=== PATIENT | female | born 1975 | race Caucasian/White ===

== ENCOUNTER 2017-03-10 15:38 | Observation (INO) | payer MEDICARE, MEDICAID ==
[2017-03-10] MEDS ORDERED: Ketorolac Tromethamine 30 MG/ML VIAL ONE (16:17)
--- NOTE | 2017-03-10 16:30 | RAD ---
RIGHT ANKLE THREE VIEWS 03/10/17 INDICATION: Injury. FINDINGS: There is an obliquely oriented distal fibular fracture. There is slight wearing of the medial ankle mortise. Soft tissue swelling is present. There is a fracture fragment at the medial aspect of the ankle just lateral to the talus. Exact etiol ogic site for this avulsed fracture fragment is not definitive. IMPRESSION: Distal fibular fracture. Fracture fragmentation at the medial aspect of the ankle. Disruption of ankle mortise. Consider CT evaluation for further anatomic delineation. POS: [facility]
[2017-03-10 16:54] LABS: #Basophils 0.1 thou/uL (0.0-0.2); #Eosinphils 0.1 thou/uL (0.0-0.7); #Lymphocytes 2.8 thou/uL (1.20-3.40); #Monocytes 0.5 thou/uL (0.11-0.59); #Neutrophils 6.6 thou/uL (1.40-6.50); %Basophils 0.5 % (0.0-1.0); %Eosinophils 1.1 % (0.0-10.0); Mean Platelet Volume 6.7 fL (7.4-10.4)
[2017-03-10 17:16] LABS: Anisocytosis SLIGHT = 6-15 cells (100X) (0-5/hpf); Basophilic Stippling SLIGHT = 1-2 cells (100X) (None Seen); Hypochromia SLIGHT = 6-15 cells (100X) (0-5/hpf); Microcytosis MODERATE=15-30 cells (100X) (0-5/hpf); Ovalocytes SLIGHT = 2-5 cells (100X) (0-1/hpf); Polychromasia SLIGHT = 2-3 cells (100X) (0-2/hpf)
[2017-03-10 17:19] LABS: ALT (SGPT) 13 U/L (8-55); AST (SGOT) 15 U/L (5-34); Alkaline Phosphatase 79 U/L (40-150); Anion Gap 11 mmol/L (10-20); BUN (Urea Nitrogen) 9 mg/dL (7.0-18.7); Bilirubin, Total 0.2 mg/dL (0.2-1.2); CK (CPK) 62 U/L (29-168); Calc. Creatinine Clearance 0 mL/min (70-130); Calcium 8.3 mg/dL (7.8-10.44); Carbon Dioxide 25 mmol/L (22-29); Chloride 101 mmol/L (98-107); Estimated GFR-MDRD 75; Globulin 2.8 g/dL (2.4-3.5); Lipase 18 U/L (8-78); Protein, Total 6.6 g/dL (6.0-8.3)
[2017-03-10 17:23] LABS: Troponin I Less than 0.010 ng/mL (< 0.028)
[2017-03-10] MEDS ORDERED: Morphine 4 MG/ML VIAL ONE (18:41)
[2017-03-10 19:19] LABS: Bilirubin Negative (Negative); Blood, Urine Negative (Negative); Glucose, Urine (Dipstick) Negative (Negative); Ketone, Urine Negative (Negative); Nitrite Negative (Negative); Protein, Urine (Dipstick) Negative (Neg-Trace); Urobilinogen 0.2 mg/dL (0.2-1.0)
[2017-03-10] MEDS ORDERED: Ondansetron HCl/PF 4 MG/2 ML Vial IVP PRN (20:58)
[2017-03-10] MEDS ORDERED: Ondansetron ODT 4 MG TAB SL PRN (20:58)
[2017-03-10 20:59] LABS: Troponin I Less than 0.010 ng/mL (< 0.028)
[2017-03-10] MEDS ORDERED: Acetaminophen 325 MG TAB PO PRN (21:13)
[2017-03-10 21:17] VITALS: BMI 40.7
[2017-03-10] MEDS ORDERED: Acetaminophen/Codeine 30-300mg Tablet PO PRN (21:21)
[2017-03-10] MEDS: Sodium Chloride 0.9% 1,000 ML IV SCH (22:14)
[2017-03-10 23:14] LABS: Iron 16 ug/dL (50-170)
[2017-03-10 23:19] LABS: Troponin I Less than 0.010 ng/mL (< 0.028)
[2017-03-10] MEDS ORDERED: Ketorolac Tromethamine 30 MG/ML VIAL IVP SCH (23:45)
[2017-03-11 00:19] LABS: Bilirubin Negative (Negative); Blood, Urine Large (Negative); Glucose, Urine (Dipstick) Negative (Negative); Ketone, Urine Negative (Negative); Nitrite Positive (Negative); Protein, Urine (Dipstick) Negative (Neg-Trace); Urobilinogen 0.2 mg/dL (0.2-1.0)
[2017-03-11 00:30] LABS: RBC/HPF 21-50 HPF (0-3)
[2017-03-11 00:31] LABS: Bacteria/HPF 3+ HPF (None Seen); Hyaline Casts/LPF 0-3 HYALINE CAST LPF (0-3 Hyaline); Squamous Epithelial 0-3 HPF (0-3)
[2017-03-11 00:35] LABS: Amphetamine Not Detected (NotDetected); Methadone Not Detected (NotDetected); Methamphetamine Not Detected (NotDetected)
[2017-03-11 05:02] LABS: #Eosinphils 0.2 thou/uL (0.0-0.7); #Lymphocytes 3.2 thou/uL (1.20-3.40); #Monocytes 0.5 thou/uL (0.11-0.59); %Basophils 0.4 % (0.0-1.0); %Eosinophils 1.9 % (0.0-10.0); %Lymphocytes 35.7 % (21.0-51.0); %Monocytes 5.9 % (0.0-10.0); Hematocrit 26.2 % (36.0-47.0); Mean Platelet Volume 6.8 fL (7.4-10.4); Red Blood Cell (RBC) Count 3.58 mill/uL (4.20-5.40); White Blood Cell (WBC) Count 8.8 thou/uL (4.8-10.8)
[2017-03-11] MEDS: Sodium Chloride 0.9% 1,000 ML IV SCH ×2 (05:04→12:23)
[2017-03-11] MEDS: Acetaminophen/Codeine 30-300mg Tablet PO PRN ×5 (05:08→22:07)
[2017-03-11 05:13] LABS: Anion Gap 10 mmol/L (10-20); BUN (Urea Nitrogen) 12 mg/dL (7.0-18.7); Calc. Creatinine Clearance 161 mL/min (70-130); Calcium 8.2 mg/dL (7.8-10.44); Carbon Dioxide 26 mmol/L (22-29); Chloride 106 mmol/L (98-107); Cholesterol 229 mg/dl (< 200 Desired); Estimated GFR-MDRD 79; LDL Cholesterol, Calculated 152 mg/dL
--- NOTE | 2017-03-11 07:38 | HP-2 ---
RESIDENT PHYSICIAN: Joselo Mccall M.D. ATTENDING PHYSICIAN: Gabriele Silva M.D. PRIMARY CARE PHYSICIAN: Carissa Chahal D.O. CODE STATUS: FULL. CHIEF COMPLAINT: "I passed out." HISTORY OF PRESENT ILLNESS: This is a 41-year-old female who presents with multiple daily episodes of syncope for the last month and a half. Today, the patient passed out in the lobby of local business, which was witnessed by multiple people. The fall caused her to fracture her right ankle. The patient has not seen her PCP for evaluation of these episodes because she is currently out of work. She describes the episodes as "feeling like oxygen is being cut off from her breathing." After this, her arms and legs begin shaking, eventually give out, and then she "blacks out." The patient thinks that she is out for only a few seconds and always knows exactly what happened afterwards. No memory loss or postictal phase after these episodes. No associated chest pain, palpitations, shortness of breath, etc. Has never had anyone tell her that she has seizure-like activity. The patient does state that she sometimes loses bowel and bladder continence; however. The patient denies any obvious triggers including anxiety/emotional stress, prolonged standing, positional changes, other situational factors. In the ER, the patient received pain medication and had her right ankle splinted. Orthopedics was consulted and stated that she just needed an outpatient evaluation for her right ankle fracture. PAST MEDICAL HISTORY: 1. Bipolar 1, depressed. 2. Panic attacks. 3. Generalized anxiety disorder. 4. Chronic insomnia. Of note, the patient has had previous admissions to psychiatric facilities for suicidal ideation. She denies any history of heart disease or arrhythmias. PAST SURGICAL HISTORY: 1. Tubal ligation. 2. Cholecystectomy. ALLERGIES: BACTRIM causes hives. MEDICATIONS: 1. Prozac 60 mg q.a.m. 2. Klonopin 0.5 mg b.i.d. 3. Trazodone 50 mg 1-2 tabs at bedtime p.r.n. 4. Doxepin 150 mg at bedtime. 5. Gabapentin 300 mg in the morning and at noon and then 2400 mg at night. 6. Seroquel 400 mg at night. FAMILY HISTORY: Significant for coronary heart disease in multiple family members, her mom at [address] and had her first heart attack at 31. SOCIAL HISTORY: The patient denies tobacco use, drugs or alcohol. She is currently unemployed and searching for work. She is single with 3 children. REVIEW OF SYSTEMS: Ten point review of systems including general, eyes, ENT, respiratory, CV, GI, , skin, musculoskeletal, and neuro all negative except for those pertinent positives listed above in HPI as well as endorsing some relative hypothermia(she feels cooler than other people at normal temperatures) and right leg pain after her fall. PHYSICAL EXAMINATION: VITAL SIGNS: Blood pressure 124/78, pulse 95, respirations 18, temperature 98.4 , pulse ox 94% on room air, currently is 107.95 kilograms. GENERAL: Patient is alert and oriented x4, no acute distress. She is obese, appropriately interactive. HEENT: Eyes: PERRLA, EOMI. Conjunctivae within normal limits. 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 ENT: TMs pearly sorensen without bulging or erythema. Oropharynx within normal limits. NECK: Supple, no lymphadenopathy, no thyromegaly, no bruits. CARDIOVASCULAR: Regular rate and rhythm. She had a subtle diastolic murmur, no gallops. Radial pulses 2+, pedal pulses 2+. RESPIRATORY: Normal effort, no retractions, clear to auscultation bilaterally. ABDOMEN: Soft, nontender to palpation. Positive bowel sounds x4, no masses or distention. EXTREMITIES: No clubbing, no cyanosis, no edema. MUSCULOSKELETAL: Tone within normal limits. Muscle strength 5/5. Full range of motion. She had her right ankle in a splint. NEUROLOGIC: No focal deficits. Sensation within normal limits. Deep tendon reflexes 2/4. Cranial nerves II through XII intact. GCS 15. She had an intention tremor when performing cerebellar testing, but no ataxia. SKIN: Warm, dry. No cyanosis or other lesions. PSYCHIATRIC: Appropriate mood and affect. LABORATORY DATA AND X-RAY FINDINGS: CBC: White blood cell count 10, platelets 413, and hemoglobin 8.9, which is down from her baseline of around 11, hematocrit 29, MCV was 72.5. CMP: Sodium 133, potassium 4.2, chloride 101, bicarbonate 25, BUN 9 and creatinine 0.83, glucose 91, calcium was 8.3. Total protein 6.6, albumin 3.8, bilirubin 0.2, AST 15, ALT 13, alkaline phosphatase 79. They did check a D-dimer, which is 0.4. CK 62, CK-MB 0.7, troponin less than 0.01, and lipase 18. UA was not done. UDS pending. EKG showed normal sinus rhythm. Chest x-ray was not performed. IMAGING: Ankle x-ray showed a distal fibular fracture with fragmentation of the medial aspect of the ankle and disruption of the ankle mortise. ASSESSMENT AND PLAN: A 41-year-old female with: 1. Syncopal episode. Differential diagnosis includes vasovagal/reflex syncope versus orthostatic versus cardiac arrhythmic etiology versus structural heart disease, also consider possible seizure activity. We will check a TSH, beta hCG , UDS, UA, echo and orthostatics. We will consider EEG if workup is otherwise negative. We will also discontinue doxepin, as this may be contributing to orthostatic picture. We will place in observation on the medical unit. 2. Microcytic anemia, hemoglobin down from baseline. We will check iron studies, FOBT. Anemia could be contributing to syncopal episodes. May need further work up. The patient does endorse significant menorrhagia for many years. 3. Acute kidney injury versus chronic kidney injury. IV fluids overnight. 4. Bipolar 1. Continue home medications, hold doxepin. 5. Anxiety disorder. Continue Klonopin for now, UDS. 6. Chronic insomnia. Trazodone as needed. 7. Right fibular fracture. Orthopedic consultation as an outpatient. DISPOSITION AND LENGTH OF HOSPITAL STAY: Will likely be discharged to home and expect hospital stay less than 2 midnights. Symptomatic medications will be provided. History and physical exam as well as management discussed with Dr. Menendez. GUCCI
[2017-03-11] MEDS: Enoxaparin Sodium 40 MG/0.4 ML SYRINGE SC SCH (08:57)
[2017-03-11] MEDS: FLUoxetine HCl 20 MG CAP PO SCH (08:57)
[2017-03-11] MEDS: clonazePAM 0.5 MG TAB PO SCH ×2 (08:57→20:50)
[2017-03-11] MEDS: Gabapentin 300 MG CAP PO SCH ×2 (08:57→19:04)
[2017-03-11] MEDS: Ibuprofen 600 MG TAB PO PRN (08:58)
[2017-03-11] MEDS ORDERED: FLU VACC QS2017-18 36 mo. & older 0.5 ML SYRINGE IM ONE (09:00)
[2017-03-11] MEDS ORDERED: ASENAPINE MALEATE SL SCH (09:00)
--- NOTE | 2017-03-11 09:29 | PDOC.FM ---
- Subjective Subjective: c/o syncopal spells daily for 1.5 months described as with standing or while walking; not with defacating or voiding, although does have bowel and bladder incontinence at time with the episodes; describes prodromal sx beforehand of dizziness and tunnel vision; endorses heavy periods - Objective MAR Reviewed: Yes Vital Signs & Weight: Vital Signs (12 hours) Temp Pulse Resp BP BP BP Pulse Ox 03/11/17 07:44 97.6 F 76 16 03/11/17 04:07 97.6 F 76 16 98/52 L 96 03/10/17 23:47 99 113/61 03/10/17 23:45 98.3 F 88 16 111/56 L 97 I&O: 03/10/17 03/11/17 03/12/17 06:59 06:59 06:59 Intake Total 1471 300 Output Total 900 600 Balance 571 -300 Result Diagrams: 03/11/17 04:10 03/11/17 04:10 <Camille Owen - Last Filed: 03/11/17 14:35> - Objective Vital Signs & Weight: Vital Signs (12 hours) Temp Pulse Resp BP BP BP BP 03/11/17 12:03 97.7 F 71 18 103/59 L 100/56 L 102/55 L 03/11/17 07:44 97.6 F 76 16 03/11/17 07:40 97.4 F L 79 16 95/50 L 108/55 L 94/57 L 03/11/17 04:07 97.6 F 76 16 98/52 L Pulse Ox 03/11/17 12:03 100 03/11/17 07:44 03/11/17 07:40 98 03/11/17 04:07 96 I&O: 03/10/17 03/11/17 03/12/17 06:59 06:59 06:59 Intake Total 1471 1851 Output Total 900 600 Balance 571 1251 Result Diagrams: 03/11/17 04:10 03/11/17 04:10 <Checo Singer - Last Filed: 03/11/17 14:42> Phys Exam - Physical Examination Constitutional: NAD HEENT: PERRLA, moist MMs, sclera anicteric Respiratory: no wheezing, no rales, clear to auscultation bilateral Cardiovascular: RRR, no significant murmur Gastrointestinal: soft, non-tender, no distention, positive bowel sounds Musculoskeletal: no edema, pulses present Neurological: non-focal, normal sensation Psychiatric: normal affect, A&O x 3 Skin: no rash <Camille Owen - Last Filed: 03/11/17 14:35> Dx/Plan (1) Syncope Code(s): R55 - SYNCOPE AND COLLAPSE Status: Acute (2) Bipolar disorder Code(s): F31.9 - BIPOLAR DISORDER, UNSPECIFIED Status: Acute (3) Iron deficiency anemia due to chronic blood loss Code(s): D50.0 - IRON DEFICIENCY ANEMIA SECONDARY TO BLOOD LOSS (CHRONIC) Status: Acute (4) CINDY (acute kidney injury) Code(s): N17.9 - ACUTE KIDNEY FAILURE, UNSPECIFIED Status: Acute - Plan Plan: 41 yo f with pmhx of bipolar d/o presents with a month hx of daily syncopal episodes. Syncope -likely d/t orthostasis from volume depletion with iron deficient anemia feels dizzy right before nonrhythmic shaking of arms and legs episodes of bowel and bladder incontinence with some episodes not after voiding or defacating or coughing usually when standing or walking Plan: echo orthostatics will consider EEG and a tilt test continue maintenance fluids 2.)Iron deficient Anemia- Will start iron infusion and start on PO iron Will order an FOBT 3.)CINDY- Maintenance fluids 4.)Fibular fracture- ortho was consulted in the ED and recommend outpatient follow-up recommend dc with crutches 5.)Menorrhagia-recommend bc discussion for medical management <Camille Owen - Last Filed: 03/11/17 14:35> Attending Addendum - Attending Addendum I personally evaluated the patient and discussed the management with Dr. Beth Peterson. I agree with the History, Examination, Assessment and Plan documented above with any addition or exceptions noted below. Patient feeling somewhat better today. She is likely having symptomatic anemia and orthostasis due to heavy menstrual cycles. Will continue fluid hydration and will give iron infusion to help with her severe iron deficiency anemia. Will also discuss behavior modifications on how to avoid orthostatic symptoms. She will need outpatient follow up for her ankle fracture, and will need to control pain in the interim. Hopefully home tomorrow. <Checo Singer - Last Filed: 03/11/17 14:42>
[2017-03-11] MEDS ORDERED: Acetaminophen 325 MG/10.15 ML UDCUP PO SCH (10:30)
[2017-03-11] MEDS ORDERED: Iron Sucrose Complex 250 MG in Sodium Chloride 0.9% 250 ML 250 ML IVPB SCH (10:30)
[2017-03-11] MEDS ORDERED: Acetaminophen 500 MG TAB PO SCH (11:00)
[2017-03-11] MEDS ORDERED: Sodium Ferric Gluconate 250 MG in Sodium Chloride 0.9% 100 ML IVPB SCH (11:00)
--- NOTE | 2017-03-11 11:04 | HP ---
DATE OFADMISSION: 03/10/2017 CHIEF COMPLAINT: Fainting. HISTORY OF PRESENT ILLNESS: This is a 41-year-old female who presents with a month and a half of fainting. It typically occurs while she is standing. She feels like she is not getting enough oxygen to her brain. Her lungs start shaking and then she passes out and hits the ground. When she wakes up a few seconds later she remembers everything preceding the event and is oriented and she has never been told she has any seizure activity, never has had loss of bowel or bladder function or any tongue or cheek biting. These do not happen situationally upon exertion while using the bathroom or in crowded places when she feels like her anxiety is worse. They seem to be largely unprovoked. With her last spell she had a fibular fracture that was splinted in the ED, and the orthopedist recommended outpatient followup. REVIEW OF SYSTEMS: All systems reviewed and otherwise negative with exception as per HPI. PAST MEDICAL HISTORY: 1. Bipolar 1. 2. Generalized anxiety disorder. 3. Insomnia. PAST SURGICAL HISTORY: BTL. MEDICATIONS: Prozac, Seroquel, doxepin, Klonopin, trazodone. ALLERGIES: SULFAMETHOXAZOLE and TRIMETHOPRIM. SOCIAL HISTORY: Denies tobacco, ethanol or drug use. FAMILY HISTORY: Positive for coronary artery disease in her mother less than age 55. PHYSICAL EXAMINATION: VITAL SIGNS: Temperature 97.5, pulse 95, respirations 16, O2 sat 92% on room air, BP 126/59. GENERAL: No acute distress, resting comfortably in bed. HEENT: Eyes without icterus injection. Pupils equal, round, and reactive to light, equal. Extraocular muscles intact. Pinna normal. Nares patent. Nasal cannula in place. Moist mucous membranes without any evidence of trauma. CARDIOVASCULAR: Regular rate and rhythm. Normal S1, S2, no obvious murmurs. LUNGS: Clear to auscultation bilaterally without increased work of breathing. ABDOMEN: Bowel sounds positive. Nontender to palpation. EXTREMITIES: Right lower extremity tender to palpation in a stirrup splint with good cap refill and sensation is intact to light touch in all 5 toes and she is able to wiggle all her toes. SKIN: Warm and dry. No obvious rash or wounds. Multiple tattoos. NEUROLOGIC: Cranial nerves II-XII intact and symmetric. Motor 5/5 in upper and lower extremities with the exception of some limitation examination secondary to pain in the right lower extremity. Sensation intact to light touch throughout. LABORATORY DATA: White count 10, hemoglobin 8.9, hematocrit 29, MCV 72.5, platelets 413. D-dimer is 0.4. Chemistry; sodium 133, potassium 4.2, chloride 101, bicarb 25, creatinine 0.83, glucose 91, calcium 8.3. LFTs normal. Troponin x2 is negative. Urine is negative as well. Ankle x-ray, the read is a distal fibular fracture with a fracture fragmentation medial aspect of the ankle with disruption of the ankle mortise. Consider CT evaluation for further anatomic delineation. On my read, she has a distal oblique fracture of the right fibula, it is minimally displaced or angulated. She does appear to either have a fracture fragment or some blipping at the medial talus that is not visible on the lateral view. ASSESSMENT AND PLAN: 1. Syncope. We will go ahead and order TSH as well as an A1c and a TTE. EKG by my read is normal sinus rhythm without any definitive ST or T-wave changes. Low suspicion for PE. 2. Anemia likely secondary to being a menstruating female. We will go ahead and supplement with iron. Order iron studies for the morning. 3. Ankle fracture. Pain medication, follow up with Orthopedics, monitor neurovascular status while in house. 4. Obesity. [employer] diet and exercise and follow up with Orthopedics. 5. Bipolar disorder. We will continue her Seroquel and her Prozac. 6. Generalized anxiety disorder. We will continue Klonopin with recommendation to wean off this medication over time as an outpatient setting. 7. Insomnia. Trazodone p.o. nightly as needed. 8. Deep venous thrombosis prophylaxis with Lovenox. 9. Gastrointestinal prophylaxis. Diet. MTDD
[2017-03-11] MEDS: Ferrous Sulfate 325 MG TAB PO SCH (17:46)
[2017-03-11 20:44] LABS: Hematocrit 26.5 % (36.0-47.0); Mean Platelet Volume 6.7 fL (7.4-10.4); Red Blood Cell (RBC) Count 3.61 mill/uL (4.20-5.40); White Blood Cell (WBC) Count 7.5 thou/uL (4.8-10.8)
[2017-03-11] MEDS: traZODone HCl 50 MG TAB PO SCH (20:50)
[2017-03-11] MEDS ORDERED: Gabapentin 300 MG CAP PO SCH (21:00)
[2017-03-12] MEDS: Ibuprofen 600 MG TAB PO PRN (00:42)
[2017-03-12] MEDS: Acetaminophen/Codeine 30-300mg Tablet PO PRN ×5 (04:14→23:27)
[2017-03-12 04:31] LABS: #Eosinphils 0.2 thou/uL (0.0-0.7); #Lymphocytes 2.5 thou/uL (1.20-3.40); #Monocytes 0.4 thou/uL (0.11-0.59); #Neutrophils 3.6 thou/uL (1.40-6.50); %Basophils 0.5 % (0.0-1.0); %Eosinophils 2.3 % (0.0-10.0); %Lymphocytes 36.9 % (21.0-51.0); %Monocytes 6.3 % (0.0-10.0); Hematocrit 25.2 % (36.0-47.0); Mean Platelet Volume 6.6 fL (7.4-10.4); Red Blood Cell (RBC) Count 3.43 mill/uL (4.20-5.40); White Blood Cell (WBC) Count 6.7 thou/uL (4.8-10.8)
[2017-03-12 04:46] LABS: Anion Gap 9 mmol/L (10-20); BUN (Urea Nitrogen) 12 mg/dL (7.0-18.7); Calc. Creatinine Clearance 174 mL/min (70-130); Calcium 8.1 mg/dL (7.8-10.44); Carbon Dioxide 24 mmol/L (22-29); Chloride 109 mmol/L (98-107); Estimated GFR-MDRD 86
--- NOTE | 2017-03-12 06:36 | PDOC.FM ---
- Subjective Subjective: Pt states that she feels well and has not had any more syncopal episodes. She complains of right ankle pain and states that during a dream last night she kicked her leg which exacerbated the pain at the fracture site. This is inconsistent with the nurses report that she was attempting to walk on her splint last night which caused the additional pain. All other symptoms in ROS were denied. Pt states that she has not had a BM since Tuesday and is aware that we are attempting to get a FOBT on a stool sample. - Objective MAR Reviewed: Yes Vital Signs & Weight: Vital Signs (12 hours) Temp Pulse Resp BP Pulse Ox 03/12/17 04:10 98.3 F 85 14 94/53 L 96 03/11/17 20:45 98.8 F 101 H 18 117/74 93 L I&O: 03/10/17 03/11/17 03/12/17 06:59 06:59 06:59 Intake Total 1471 2811 Output Total 900 2900 Balance 571 -89 Result Diagrams: 03/12/17 04:13 03/12/17 04:13 <Pedro Rosales - Last Filed: 03/12/17 10:57> - Objective Vital Signs & Weight: Vital Signs (12 hours) Temp Pulse Resp BP BP Pulse Ox 03/12/17 11:00 97.5 F L 91 16 112/56 L 93 L 03/12/17 09:10 97.3 F L 84 16 03/12/17 07:30 97.3 F L 84 16 103/60 92 L 03/12/17 04:10 98.3 F 85 14 94/53 L 96 I&O: 03/11/17 03/12/17 03/13/17 06:59 06:59 06:59 Intake Total 1471 2811 Output Total 900 2900 800 Balance 571 -89 -800 Result Diagrams: 03/12/17 04:13 03/12/17 04:13 <Checo Singer - Last Filed: 03/12/17 11:29> Phys Exam - Physical Examination Constitutional: NAD HEENT: PERRLA, moist MMs Neck: no JVD, full ROM Respiratory: clear to auscultation bilateral Cardiovascular: RRR, no significant murmur Gastrointestinal: soft, non-tender, no distention, positive bowel sounds Musculoskeletal: no edema Right LE in spint dt fracture. Toes are warm, non cyanotic. Appears to be neurovascularly intact Neurological: non-focal Psychiatric: normal affect, A&O x 3 Skin: no rash <Pedro Rosales - Last Filed: 03/12/17 10:57> Dx/Plan (1) Closed right fibular fracture Code(s): S82.401A - UNSP FRACTURE OF SHAFT OF RIGHT FIBULA, INIT FOR CLOS FX Status: Acute QualifierTitle: Encounter type: initial encounter Fracture morphology: oblique Fracture alignment: displaced (2) CINDY (acute kidney injury) Code(s): N17.9 - ACUTE KIDNEY FAILURE, UNSPECIFIED Status: Resolved (3) Iron deficiency anemia due to chronic blood loss Code(s): D50.0 - IRON DEFICIENCY ANEMIA SECONDARY TO BLOOD LOSS (CHRONIC) Status: Chronic (4) Syncope Code(s): R55 - SYNCOPE AND COLLAPSE Status: Acute QualifierTitle: Syncope type: unspecified Qualified Code(s): R55 - Syncope and collapse (5) Bipolar disorder Code(s): F31.9 - BIPOLAR DISORDER, UNSPECIFIED Status: Chronic QualifierTitle: Active/Remission status: in remission of unspecified degree Qualified Code(s): F31.70 - Bipolar disorder, currently in remission, most recent episode unspecified - Plan Plan: 41 yo f with pmhx of bipolar d/o presents with a month hx of daily syncopal episodes. Syncope -likely d/t orthostasis from volume depletion with iron deficient anemia feels dizzy right before nonrhythmic shaking of arms and legs episodes of bowel and bladder incontinence with some episodes not after voiding or defacating or coughing usually when standing or walking -monitor on tele -continue to work up source of anemia -consider cards consult for outpt monitor -echo today -orthostatics normal -will consider EEG and a tilt test outpatient -lower gabapentin dose 2.)Iron deficient Anemia- -Hb continues to drop, however not to the point of considering transfusion unless she goes below 7.5 on afternoon recheck -Will start iron infusion and start on PO iron -Considering upper GI source at pt admits to melena type BMs. Will order an FOBT 3.)CINDY- -resolved. encourage PO intake 4.)Fibular fracture- -ortho was consulted in the ED and recommend outpatient follow-up -recommend dc with crutches -tylenol/motrin for pain 5.)Menorrhagia-recommend bc discussion for medical management 6.)Bipolar Disorder -continue home meds <Pedro Rosales - Last Filed: 03/12/17 10:57> Attending Addendum - Attending Addendum I personally evaluated the patient and discussed the management with Dr. Rosales. I agree with the History, Examination, Assessment and Plan documented above with any addition or exceptions noted below. Patient reports feeling somewhat better, though continues to be symptomatic with position changes and ambulation. She has received Fe infusion, though this will take weeks to have effect. Her Hgb trended down, though likely due to dilution effect. We will check FOBT to exclude GI bleeding. Will recheck Hgb this afternoon and if less than 7.5 will transfuse for symptomatic anemia. Some of her symptoms are also likely related to orthostasis from combined effect of Gabapentin, Seroquel, and Trazodone. We will decrease her Gabapentin level for tonight as that is currently at an extremely high dose. Encourage ambulation today and possible discharge home tomorrow. No events on tele to suggest cardiogenic cause of symptoms. <Checo Singer - Last Filed: 03/12/17 11:29>
[2017-03-12] MEDS: Docusate 100 MG CAP PO SCH ×2 (09:11→21:25)
[2017-03-12] MEDS: Ferrous Sulfate 325 MG TAB PO SCH ×2 (09:11→17:13)
[2017-03-12] MEDS: Gabapentin 300 MG CAP PO SCH ×2 (09:12→17:13)
[2017-03-12] MEDS: clonazePAM 0.5 MG TAB PO SCH ×2 (09:12→21:25)
[2017-03-12] MEDS: Polyethylene Glycol 3350 17 GM Packet PO SCH (09:12)
[2017-03-12] MEDS: Enoxaparin Sodium 40 MG/0.4 ML SYRINGE SC SCH ×2 (09:12→09:50)
[2017-03-12] MEDS: FLUoxetine HCl 20 MG CAP PO SCH (09:16)
[2017-03-12 13:15] LABS: #Eosinphils 0.2 thou/uL (0.0-0.7); #Lymphocytes 2.4 thou/uL (1.20-3.40); #Monocytes 0.4 thou/uL (0.11-0.59); #Neutrophils 3.2 thou/uL (1.40-6.50); %Basophils 0.1 % (0.0-1.0); %Eosinophils 2.9 % (0.0-10.0); %Lymphocytes 39.1 % (21.0-51.0); %Monocytes 6.4 % (0.0-10.0); Hematocrit 26.7 % (36.0-47.0); Mean Platelet Volume 6.6 fL (7.4-10.4); Red Blood Cell (RBC) Count 3.62 mill/uL (4.20-5.40); White Blood Cell (WBC) Count 6.3 thou/uL (4.8-10.8)
[2017-03-12] MEDS ORDERED: Magnesium Citrate 300 ML BOT PO SCH (17:15)
[2017-03-12] MEDS ORDERED: Gabapentin 300 MG CAP PO SCH (21:00)
[2017-03-12] MEDS: traZODone HCl 50 MG TAB PO SCH (21:26)
[2017-03-13] MEDS: Ibuprofen 600 MG TAB PO PRN (02:17)
[2017-03-13] MEDS: Acetaminophen/Codeine 30-300mg Tablet PO PRN ×2 (04:14→08:48)
[2017-03-13 04:33] LABS: #Basophils 0.1 thou/uL (0.0-0.2); #Eosinphils 0.2 thou/uL (0.0-0.7); #Lymphocytes 2.9 thou/uL (1.20-3.40); #Monocytes 0.5 thou/uL (0.11-0.59); #Neutrophils 5.6 thou/uL (1.40-6.50); %Basophils 0.6 % (0.0-1.0); %Lymphocytes 31.3 % (21.0-51.0); %Monocytes 5.2 % (0.0-10.0); Hematocrit 25.5 % (36.0-47.0); Red Blood Cell (RBC) Count 3.51 mill/uL (4.20-5.40); White Blood Cell (WBC) Count 9.2 thou/uL (4.8-10.8)
[2017-03-13 04:36] LABS: Anion Gap 8 mmol/L (10-20); BUN (Urea Nitrogen) 9 mg/dL (7.0-18.7); Calc. Creatinine Clearance 171 mL/min (70-130); Calcium 8.2 mg/dL (7.8-10.44); Carbon Dioxide 27 mmol/L (22-29); Chloride 105 mmol/L (98-107); Estimated GFR-MDRD 85
--- NOTE | 2017-03-13 05:43 | PDOC.FM ---
- Subjective Subjective: Pt complains of continued R leg pain. She is states that she did work with PT yesterday and is able to get around with the walker. She has not had another syncopal episode since admission. She denies all other symptoms in ROS. She lost IV access at 0400, there were no other events over night. - Objective MAR Reviewed: Yes Vital Signs & Weight: Vital Signs (12 hours) Temp Pulse Resp BP BP Pulse Ox 03/13/17 04:12 98.4 F 100 14 105/54 L 93 L 03/12/17 20:00 98.8 F 99 16 03/12/17 19:45 98.8 F 99 16 104/64 94 L I&O: 03/11/17 03/12/17 03/13/17 06:59 06:59 06:59 Intake Total 1471 2811 750 Output Total 900 2900 1100 Balance 571 -89 -350 Result Diagrams: 03/13/17 04:09 03/13/17 04:09 <Pedro Rosales - Last Filed: 03/13/17 05:40> - Objective Vital Signs & Weight: Vital Signs (12 hours) Temp Pulse Resp BP BP Pulse Ox 03/13/17 08:50 98.4 F 84 16 03/13/17 07:27 98.4 F 84 16 110/55 L 93 L 03/13/17 04:12 98.4 F 100 14 105/54 L 93 L I&O: 03/12/17 03/13/17 03/14/17 06:59 06:59 06:59 Intake Total 2811 1000 Output Total 2900 1350 650 Balance -89 -350 -650 Result Diagrams: 03/13/17 04:09 03/13/17 04:09 <Checo Singer - Last Filed: 03/13/17 10:34> Phys Exam - Physical Examination Constitutional: NAD HEENT: moist MMs Neck: no JVD, full ROM Respiratory: clear to auscultation bilateral Cardiovascular: RRR, no significant murmur Gastrointestinal: soft, non-tender, no distention, positive bowel sounds Musculoskeletal: pulses present Splint is in place on right LE. Toes are warm, sensation normal Neurological: non-focal, normal sensation, moves all 4 limbs Lymphatic: no nodes Psychiatric: normal affect, A&O x 3 Skin: no rash <Pedro Rosales - Last Filed: 03/13/17 05:40> Dx/Plan (1) Closed right fibular fracture Code(s): S82.401A - UNSP FRACTURE OF SHAFT OF RIGHT FIBULA, INIT FOR CLOS FX Status: Acute QualifierTitle: Encounter type: initial encounter Fracture morphology: oblique Fracture alignment: displaced Plan: -Fracture is splinted and there appears to be no neurvascular compromise. -Tylenol for pain -out patient ortho consult. consider inpt consult if she stays another day (2) CINDY (acute kidney injury) Code(s): N17.9 - ACUTE KIDNEY FAILURE, UNSPECIFIED Status: Resolved (3) Iron deficiency anemia due to chronic blood loss Code(s): D50.0 - IRON DEFICIENCY ANEMIA SECONDARY TO BLOOD LOSS (CHRONIC) Status: Chronic (4) Syncope Code(s): R55 - SYNCOPE AND COLLAPSE Status: Acute QualifierTitle: Syncope type: unspecified Qualified Code(s): R55 - Syncope and collapse (5) Bipolar disorder Code(s): F31.9 - BIPOLAR DISORDER, UNSPECIFIED Status: Chronic QualifierTitle: Active/Remission status: in remission of unspecified degree Qualified Code(s): F31.70 - Bipolar disorder, currently in remission, most recent episode unspecified - Plan Plan: 41 yo f with pmhx of bipolar d/o presents with a month hx of daily syncopal episodes. Syncope -likely d/t orthostasis from volume depletion with iron deficient anemia -feels dizzy right before, nonrhythmic shaking of arms and legs, episodes of bowel and bladder incontinence with some episodes, not after voiding or defacating or coughing, usually when standing or walking -monitor on tele -continue to work up source of anemia -consider cards consult for outpt monitor -echo shows trace tricuspid regurg and EF 60-65% -orthostatics normal -will consider EEG and a tilt test outpatient -lower gabapentin dose 2.)Iron deficient Anemia- -Hb has stabilized. She likely has a baseline anemia from heavy menstruation and this was exacerbated by IVF -Will start iron infusion and start on PO iron -Considering upper GI source at pt admits to melena type BMs. Will order an FOBT 3.)CINDY- -resolved. encourage PO intake 4.)Fibular fracture- -ortho was consulted in the ED and recommend outpatient follow-up -recommend dc with crutches -tylenol/motrin for pain 5.)Menorrhagia-recommend bc discussion for medical management 6.)Bipolar Disorder -continue home meds Dispo: pending negative FOBT, pt is stable and likely appropriate for outpatient workup <Pedro Rosales - Last Filed: 03/13/17 05:40> Attending Addendum - Attending Addendum I personally evaluated the patient and discussed the management with Dr. Rosales. I agree with the History, Examination, Assessment and Plan documented above with any addition or exceptions noted below. Patient reports improved symptoms and has been able to ambulate well with walker assistance due to her fibular fracture. It is likely that presyncope symptoms are a result of combined effect of anemia 2/2 menorrhagia and high medications doses (Seroquel, Gabapentin) that are causing orthostasis. Her Hgb has uptrended and we are not widely concerned about GI bleed, but will obtain FOBT prior to discharge. She has been counselled extensively that she needs to follow up in outpatient setting with PCP to address her bleeding and low blood counts, as well as with ortho next week for management of her fracture. She will be discharged home later today. <Checo Singer - Last Filed: 03/13/17 10:34>
[2017-03-13] MEDS: FLUoxetine HCl 20 MG CAP PO SCH (08:46)
[2017-03-13] MEDS: Ferrous Sulfate 325 MG TAB PO SCH (08:46)
[2017-03-13] MEDS: clonazePAM 0.5 MG TAB PO SCH (08:46)
[2017-03-13] MEDS: Polyethylene Glycol 3350 17 GM Packet PO SCH (08:46)
[2017-03-13] MEDS: Gabapentin 300 MG CAP PO SCH (08:46)
[2017-03-13] MEDS: Enoxaparin Sodium 40 MG/0.4 ML SYRINGE SC SCH (08:46)
[2017-03-13] MEDS: Docusate 100 MG CAP PO SCH (08:46)
[2017-03-13 12:29] VITALS: TEMP 98.7
[2017-03-13 12:45] VITALS: BP 116/58
[2017-03-13] MEDS ORDERED: Fleet Enema 133 ML BOT FS SCH (13:30)
--- NOTE | 2017-03-14 06:32 | DIS-2 ---
DATE OF ADMISSION: 03/10/2017 DATE OF DISCHARGE: 03/13/2017 RESIDENT: Pedro Rosales DO ADMITTING ATTENDING: Gabriele Menendez MD RESIDENT: Checo Singer MD CONSULTATIONS: None. PROCEDURES: None. PRIMARY DIAGNOSES: Syncope secondary to symptomatic anemia. SECONDARY DIAGNOSES: Bipolar disorder, iron deficiency anemia due to chronic blood loss and acute kidney injury and a closed right fibular fracture. DISCHARGE MEDICATIONS: Gabapentin 300 b.i.d. and 900 p.o. at bedtime, Prozac 60 mg p.o. daily, trazodone 50-100 mg p.o. at bedtime, Saphris 5 mg p.o. b.i.d. , Klonopin 0.5 mg p.o. at bedtime, doxepin 150 mg p.o. at bedtime, Seroquel 400 mg p.o. at bedtime, Tylenol #3 two tabs p.o. q.4 h. p.r.n. for pain and ibuprofen 600 mg t.i.d. p.r.n. for pain maximum of 3 days. DISCONTINUED MEDICATIONS: None. HOSPITAL COURSE: The patient was admitted after presenting to the emergency room with approximately 1 month's worth of syncopal episodes today. On the date of admission, the patient fell on her right leg and concerned for the continued pain. X-ray showed a right distal fibular fracture. Orthopedics was called from the emergency room and said that they could be consulted outpatient once patient was stabilized and worked up for the syncope. Patient was admitted on tele for the duration of her admission. She remained in normal sinus rhythm with no concerning arrhythmias. While she was admitted, there were no syncopal episodes. The patient did have trouble ambulating due to the fractured fibula. PT worked with her and determined that she was best to go home with a walker until she is able to be seen by orthopedics. The patient did have a history of heavy menstrual bleeding. This is likely the cause of her apparently chronic anemia as documented in the past. The patient did admit to melanotic stools. Therefore, GI source of the anemia was ruled out with a FOBT. Patient's hemoglobin did initially drop during the hospitalization. However, this is likely dilutional and once fluids were stopped, the hemoglobin stabilized and improved. Outpatient, patient will need to be a worked up for a uterine source of bleeding and she will need to be seen by Orthopedics for the fractured fibula and possible surgical repair. DISCHARGE DISPOSITION: Stable. DISCHARGE INSTRUCTIONS: 1. Location: Home. 2. Diet: Regular. 3. Activity: Ambulate with walker until can be seen by orthopedics. Follow up with orthopedics in 1 week and with PCP within 2 weeks. GUCCI
== END 2017-03-13 15:40 | disposition home or self-care (01) ==
LOC: ERS 15:38 → 2SW 20:54
PROVIDERS: ADMIT Emergency Medicine; ATTEND Emergency Medicine
DX: R55 Syncope and collapse (principal); D50.0 Iron deficiency anemia secondary to blood loss (chronic); N17.9 Acute kidney failure, unspecified; S82.401A Unspecified fracture of shaft of right fibula, initial encounter for closed fracture; F41.9 Anxiety disorder, unspecified; G47.00 Insomnia, unspecified; E66.9 Obesity, unspecified; F31.70 Bipolar disorder, currently in remission, most recent episode unspecified; Z68.41 Body mass index [BMI] 40.0-44.9, adult; Z79.899 Other long term (current) drug therapy; Z88.1 Allergy status to other antibiotic agents; Z88.2 Allergy status to sulfonamides; Z98.51 Tubal ligation status; Z90.49 Acquired absence of other specified parts of digestive tract
CPT/HCPCS: 29515; 73610; 80048 ×3; 80053; 80061; 80306; 81001; 81003; 81025; 82274; 82550; 82553; 82728; 83036; 83540; 83550; 83690; 84443; 84484 ×2; 85025 ×5; 85027; 85379; 93005; 93306; 96361 ×2; 96365; 96366; 96372; 96375; 96376; 97110 ×2; 97116 ×3; 97139 ×2; 99285; G0008; G0378 ×2; G8978; G8979; Q2036; 36415; 90471; 90682; 96374; A4216; A4353; J1650; J1885; J2270; J2916; J7050

== ENCOUNTER 2017-04-04 08:56 | Outpatient (CLI) | payer MEDICARE, MEDICAID | END 2017-04-04 08:57 | disposition home or self-care (01) | LOC: BICULT 08:56 | PROVIDERS: ATTEND Family Medicine | DX: N92.1 Excessive and frequent menstruation with irregular cycle (principal); D25.9 Leiomyoma of uterus, unspecified; R93.8 Abnormal findings on diagnostic imaging of other specified body structures; N83.202 Unspecified ovarian cyst, left side; N83.201 Unspecified ovarian cyst, right side | CPT/HCPCS: 76856 ==

== ENCOUNTER 2017-07-16 07:00 | Emergency (ER) | payer MEDICARE, MEDICAID ==
[2017-07-16 08:03] LABS: BHCG - Serum Negative (NEGATIVE); Pregs Control Background? CLEAR/WHITE (CLR/WHITE); Pregs Control Bar Appear? YES (CONTROL BAR)
[2017-07-16 08:10] LABS: ALT (SGPT) 15 U/L (8-55); AST (SGOT) 13 U/L (5-34); Albumin 4.1 g/dL (3.5-5.0); Alkaline Phosphatase 76 U/L (40-150); Anion Gap 9 mmol/L (10-20); BUN (Urea Nitrogen) 21 mg/dL (7.0-18.7); Bilirubin, Total Less than 0.2 mg/dL (0.2-1.2); Calc. Creatinine Clearance 0 mL/min (70-130); Calcium 8.7 mg/dL (7.8-10.44); Carbon Dioxide 23 mmol/L (22-29); Chloride 110 mmol/L (98-107); Estimated GFR-MDRD 70; Globulin 2.7 g/dL (2.4-3.5); Glucose 108 mg/dL (70-105); Lipase 44 U/L (8-78); Potassium 3.7 mmol/L (3.5-5.1); Protein, Total 6.8 g/dL (6.0-8.3); Sodium 138 mmol/L (136-145)
[2017-07-16 08:14] LABS: CKMB 1.1 ng/mL (0-6.6); Troponin I Less than 0.010 ng/mL (< 0.028)
[2017-07-16 08:35] LABS: #Eosinphils 0.1 thou/uL (0.0-0.7); #Lymphocytes 3.2 thou/uL (1.20-3.40); #Monocytes 0.5 thou/uL (0.11-0.59); #Neutrophils 6.5 thou/uL (1.40-6.50); %Basophils 0.2 % (0.0-1.0); %Eosinophils 0.5 % (0.0-10.0); %Lymphocytes 31.2 % (21.0-51.0); %Monocytes 4.9 % (0.0-10.0); %Neutrophils 63.2 % (42.0-75.0); Hemoglobin 8.9 g/dL (12.0-16.0); Lymphocytes 17 % (21-51); MDiff Complete? YES; Mean Corpuscular HGB CONC 31.7 g/dL (32.0-36.0); Mean Corpuscular Hemoglobin 24.3 pg (27.0-31.0); Mean Corpuscular Volume 76.6 fl (81.0-99.0); Microcytosis SLIGHT = 6-15 cells (100X) (0-5/hpf); Monocytes 3 % (0-10); Neutrophil 80 % (42-75); PLT Morphology Comment Appears Adequate; Platelet Count 381 thou/uL (130-400); Polychromasia SLIGHT = 2-3 cells (100X) (0-2/hpf); RBC Distribution Width 15.3 % (11.5-14.5); Red Blood Cell (RBC) Count 3.66 mill/uL (4.20-5.40); White Blood Cell (WBC) Count 10.3 thou/uL (4.8-10.8)
[2017-07-16] MEDS ORDERED: Lorazepam 2 MG/ML VIAL ONE ×2 (09:17→11:00)
[2017-07-16] MEDS ORDERED: Morphine 4 MG/ML VIAL ONE ×2 (09:17→11:00)
--- NOTE | 2017-07-16 10:01 | CT ---
CT ABDOMEN AND PELVIS WITH IV CONTRAST: Date: 07/16/17 PROVIDED CLINICAL HISTORY: Left lower quadrant pain. FINDINGS: The visualized lung bases are free of significant opacity. Hypodensity, too small to characterize but compatible with simple cyst, involving the mid portion of the right kidney. The solid abdominal organs demonstrate an otherwise unremarkable CT appearance. Changes of prior chol ecystectomy are seen. There is no bowel dilatation, inflammatory fat stranding, free fluid, or free air apparent. The appen heidi appears normal. The osseous structures demonstrate no concerning osteoblastic or osteolytic lesions. IMPRESSION: No evidence for an acute process. POS: [facility]
[2017-07-16 11:32] LABS: Bilirubin Negative (Negative); Blood, Urine Negative (Negative); Clarity CLEAR (Clear); Glucose, Urine (Dipstick) Negative (Negative); Leukocyte Negative (Negative); Nitrite Negative (Negative); Protein, Urine (Dipstick) Negative (Neg-Trace); Urobilinogen 0.2 mg/dL (0.2-1.0)
[2017-07-16 11:35] LABS: Specific Gravity, Urine 1.062 (1.002-1.036)
[2017-07-16] MEDS ORDERED: ISOVUE-370 76%-LOCM 1 ML ONE (11:46)
--- NOTE | 2017-07-30 22:58 | EKG ---
Test Reason : CHEST TIGHTNESS Blood Pressure : / mmHG Vent. Rate : 091 BPM Atrial Rate : 091 BPM P-R Int : 142 ms QRS Dur : 088 ms QT Int : 372 ms P-R-T Axes : 048 030 036 degrees QTc Int : 457 ms Normal sinus rhythm Possible Left atrial enlargement Borderline ECG Confirmed by SHANE HARVEY, JAYESH ([id number]), editor map CHANNING BAILEY ([id number]) on 07/30/2017 10:57:48 PM Referred By: Confirmed By:JAYESH LYNN MD
== END 2017-07-16 12:49 | disposition home or self-care (01) ==
LOC: ERS 07:00
DX: R10.12 Left upper quadrant pain (principal); R10.32 Left lower quadrant pain; F41.9 Anxiety disorder, unspecified; D50.0 Iron deficiency anemia secondary to blood loss (chronic); K21.9 Gastro-esophageal reflux disease without esophagitis; F31.9 Bipolar disorder, unspecified; G47.00 Insomnia, unspecified; Z79.899 Other long term (current) drug therapy
CPT/HCPCS: 36415; 51701; 74177; 80053; 81003; 82553; 83690; 84484; 84703; 85025; 93005; 96361; 96374; 96375; 96376; A4353; J2060; J2270

== ENCOUNTER 2017-12-09 23:58 | Emergency (ER) | payer MEDICAID, MEDICARE ==
[2017-12-10] MEDS ORDERED: Ondansetron ODT 8 MG TAB ONE (00:23)
== END 2017-12-10 00:32 | disposition home or self-care (01) ==
LOC: ERS 23:58
DX: J06.9 Acute upper respiratory infection, unspecified (principal); K21.9 Gastro-esophageal reflux disease without esophagitis; F41.9 Anxiety disorder, unspecified; F31.9 Bipolar disorder, unspecified
CPT/HCPCS: 99283

== ENCOUNTER 2018-01-21 11:40 | Observation (INO) | payer MEDICARE ==
[2018-01-21 12:50] LABS: Anion Gap 16 mmol/L (10-20); BUN (Urea Nitrogen) 15 mg/dL (7.0-18.7); Calc. Creatinine Clearance 0 mL/min (70-130); Carbon Dioxide 19 mmol/L (22-29); Chloride 101 mmol/L (98-107); Potassium 3.8 mmol/L (3.5-5.1); Sodium 132 mmol/L (136-145)
[2018-01-21 12:51] LABS: ALT (SGPT) 22 U/L (8-55); AST (SGOT) 20 U/L (5-34); Albumin 4.5 g/dL (3.5-5.0); Alkaline Phosphatase 100 U/L (40-150); Bilirubin, Total 0.6 mg/dL (0.2-1.2); Calcium 9.4 mg/dL (7.8-10.44); Estimated GFR-MDRD 29; Globulin 3.2 g/dL (2.4-3.5); Glucose 93 mg/dL (70-105); Protein, Total 7.7 g/dL (6.0-8.3)
[2018-01-21 12:54] LABS: #Basophils 0.1 thou/uL (0.0-0.2); #Lymphocytes 2.4 thou/uL (1.20-3.40); #Monocytes 0.9 thou/uL (0.11-0.59); %Basophils 0.4 % (0.0-1.0); %Eosinophils 0.1 % (0.0-10.0); %Monocytes 6.9 % (0.0-10.0); %Neutrophils 74.7 % (42.0-75.0); Hemoglobin 6.8 g/dL (12.0-16.0); Hypochromia MARKED = >30 cells (100X) (0-5/hpf); MDiff Complete? YES; Mean Corpuscular Hemoglobin 16.9 pg (27.0-31.0); Mean Corpuscular Volume 60.3 fL (78.0-98.0); Mean Platelet Volume 10.8 fL (7.4-10.4); Microcytosis MARKED = >30 cells (100X) (0-5/hpf); Platelet Count 720 thou/uL (130-400); Polychromasia SLIGHT = 2-3 cells (100X) (0-2/hpf); RBC Distribution Width 20.5 % (11.5-14.5); Reflex for Review?? YES; White Blood Cell (WBC) Count 13.4 thou/uL (4.8-10.8)
[2018-01-21 12:58] LABS: CKMB 1.3 ng/mL (0-6.6); Troponin I Less than 0.010 ng/mL (< 0.028)
--- NOTE | 2018-01-21 13:00 | RAD ---
AP VIEW CHEST: HISTORY: Syncope. COMPARISON: 03/02/2016 FINDINGS: AP view chest demonstrates the lungs to be well aerated. No evidence of active intrathoracic disease is seen. No evidence of effusions, pneumonia, or pneumothorax is seen. IMPRESSION: Unremarkable anterior-posterior view chest. POS: [facility]
[2018-01-21 13:48] LABS: BHCG - Serum Negative (NEGATIVE); Pregs Control Background? CLEAR/WHITE (CLR/WHITE); Pregs Control Bar Appear? YES (CONTROL BAR)
--- NOTE | 2018-01-21 14:31 | PDOC.FPRHP ---
- History of Present Illness Chief Complaint: Syncope History of Present Illness: This is a 42 yo female with a PMH of Bipolar 1, DMM, anemia, panic attacks, VIKTORIYA , who presents to the ER with a history of passing out. She states that she has passed out 3 times in the last week and that this issue is not new. She reports that some of these episodes are witnessed and that she is usually out for a few seconds. She reports that she shakes some after falling but is never confused or lethargic after these episodes. She also reports heavy menstrual cycles. She reports them lasting 1 week and using up to 40 ultra pads during that time. She reports multiple golfball sized clots. Pt. denies seeing neurologist or OBGYN. She has only taking iron for her bleeding, denies control use or metformin. Pt. also reports episodes of hypertension. She states her systolic BP will get as high as 180. - Allergies/Adverse Reactions Allergies Allergy/AdvReac Type Severity Reaction Status Date / Time sulfamethoxazole Allergy Verified 03/10/17 21:03 [From Bactrim] trimethoprim [From Bactrim] Allergy Verified 03/10/17 21:03 - Home Medications Medication Instructions Recorded Confirmed Type FLUoxetine HCl [Prozac] 80 mg PO DAILY 03/28/15 01/21/18 History Doxepin HCl 150 mg PO HS 03/10/17 01/21/18 History QUEtiapine Fumarate [SEROquel] 200 mg PO HS 03/10/17 01/21/18 History clonazePAM [Klonopin] 1 mg PO TID 03/10/17 01/21/18 History Lurasidone HCl [Latuda] 80 mg PO DAILY 01/21/18 01/21/18 History Zolpidem Tartrate [Ambien] 10 mg PO HS 01/21/18 01/21/18 History - History PMHx: Menometrorrhagia, anemia due to blood loss, bipolar 1, MDD, panic attacks , VIKTORIYA, insomnia PSHx: None contributory FHx: Menometrorrhagia of her aunt Social: none contributory - Review of Systems General: denies: fever/chills, weight/appetite/sleep changes Eyes: denies: eye pain, vision changes ENT: denies: nasal congestion, rhinorrhea Respiratory: denies: cough, congestion, shortness of breath, exercise intolerance Cardiovascular: denies: chest pain, palpitation, edema Gastrointestinal: denies: nausea, vomiting, diarrhea, constipation Genitourinary: denies: incontinence, dysuria Skin: denies: rashes, lesions Musculoskeletal: denies: pain, tenderness Neurological: reports: syncope. denies: numbness, seizure Psychological: reports: anxiety, depression - Vital signs BP: 135/86 HR: 111 RR: 12 Tmax: 98.6 Pox: 97% on RmAir Wt: 108 kg - Physical Exam Constitutional: NAD, awake, alert and oriented, well developed HEENT: PERRLA, EOMI, conjunctiva clear, MMM Neck: supple, FROM Chest: no-tender to palpation, no lesions Heart: RRR, normal S1/S2, no murmurs/rubs/gallops Lungs: CTAB, no respiratory distress, good air movement, no wheezing Abdomen: soft, non-tender, bowel sounds present Musculoskeletal: normal structure, normal tone Neurological: no focal deficit, CN II-XII intact Skin: no rash/lesions, good turgor Heme/Lymphatic: no unusual bruising or bleeding Psychiatric: normal mood and affect, good judgment and insight FMR H&P: Results - Labs Result Diagrams: 01/21/18 12:07 01/21/18 12:07 Lab results: WBC 13.4 thou/uL (4.8-10.8) H 01/21/18 12:07 Hgb 6.8 g/dL (12.0-16.0) L 01/21/18 12:07 Hct 24.1 % (36.0-47.0) L 01/21/18 12:07 MCV 60.3 fL (78.0-98.0) L 01/21/18 12:07 Plt Count 720 thou/uL (130-400) H 01/21/18 12:07 Neutrophils % 74.7 % (42.0-75.0) 01/21/18 12:07 Sodium 132 mmol/L (136-145) L 01/21/18 12:07 Potassium 3.8 mmol/L (3.5-5.1) 01/21/18 12:07 Chloride 101 mmol/L (98-107) 01/21/18 12:07 Carbon Dioxide 19 mmol/L (22-29) L 01/21/18 12:07 BUN 15 mg/dL (7.0-18.7) 01/21/18 12:07 Creatinine 1.89 mg/dL (0.6-1.1) H 01/21/18 12:07 Glucose 93 mg/dL (70-105) 01/21/18 12:07 Calcium 9.4 mg/dL (7.8-10.44) 01/21/18 12:07 Total Bilirubin 0.6 mg/dL (0.2-1.2) 01/21/18 12:07 AST 20 U/L (5-34) 01/21/18 12:07 ALT 22 U/L (8-55) 01/21/18 12:07 Alkaline Phosphatase 100 U/L (40-150) 01/21/18 12:07 CK-MB (CK-2) 1.3 ng/mL (0-6.6) 01/21/18 12:07 Serum Total Protein 7.7 g/dL (6.0-8.3) 01/21/18 12:07 Albumin 4.5 g/dL (3.5-5.0) 01/21/18 12:07 FMR H&P: A/P - Problem List (1) Syncope Current Visit: No Status: Acute Code(s): R55 - SYNCOPE AND COLLAPSE Qualifiers: Syncope type: unspecified Qualified Code(s): R55 - Syncope and collapse (2) Dysfunctional uterine bleeding Current Visit: Yes Status: Acute Code(s): N93.8 - OTHER SPECIFIED ABNORMAL UTERINE AND VAGINAL BLEEDING (3) Generalized anxiety disorder Current Visit: Yes Status: Acute Code(s): F41.1 - GENERALIZED ANXIETY DISORDER (4) Insomnia Current Visit: No Status: Acute Code(s): G47.00 - INSOMNIA, UNSPECIFIED (5) Bipolar disorder Current Visit: No Status: Chronic Code(s): F31.9 - BIPOLAR DISORDER, UNSPECIFIED Qualifiers: Active/Remission status: in remission of unspecified degree Qualified Code( s): F31.70 - Bipolar disorder, currently in remission, most recent episode unspecified (6) Iron deficiency anemia due to chronic blood loss Current Visit: No Status: Chronic Code(s): D50.0 - IRON DEFICIENCY ANEMIA SECONDARY TO BLOOD LOSS (CHRONIC) - Plan Disposition/LOS: This is a 42 yo female with a PMH bipolar 1, MDD, dysfunctional uterine bleeding , panic attack, VIKTORIYA Syncope -Likely secondary to chronic blood loss 2/2 dysfunctional uterine bleeding vs vasovagal. Pt's hemoglobin was 6.8 on admission. Our plan is to transfuse 2 units and repeat labs in the morning. Her syncope episodes do not sound like seizure activity. We will watch her overnight for any signs of further syncope Dysfunctional uterine bleeding -We are transfusing blood tonight. Pt. will need outpt OBGYN follow up for treatment of her heavy cycles. We are rechecking CBC in the morning. Bipolar 1 -Aware, CICI is prescribing her meds and we will continue her on current regiment. General anxiety disorder -Aware, [facility]ICI is prescribing her meds and we will continue her on current regiment. Panic attacks -Aware, [facility] is prescribing her meds and we will continue her on current regiment. MDD -Aware, [facility] is prescribing her meds and we will continue her on current regiment. HTN -Pt. reports subjective history of hypertensive episodes. We will monitor while she is here. Code: full Prophylaxis: SCDs Family: none at bedside Disposition: home tomorrow if hemoglobin is stable FMR H&P: Upper Level - Pertinent history 42 yo female with PMH of Abnormal Uterine Bleeding, Chronic anemia, and Bipolar disorder presents to ED for evaluation of syncope. Patient states she has had three episodes this week where she feels weak, her vision goes dark and she passes out. Patient denies any head trauma during these times. Patient states that she has had episodes like this in the past when her blood counts get low. She denies chest pain, unilateral weakness, recent illness, or GI bleeding. She does state that her menstrual cycles are very heavy using lots of feminine products for up to 6 days. She states that she can pass clots up to the size of golf balls. Patient states her mother and her sister have the same conditions. She has never been seen by PHYSICAL THERAPY RESIDENT for this. She does state she takes an iron supplement daily. ROS: General: NAD, Reports generalized weakness HEENT: Denies sinus congestion, vision changes CV: Denies chest pain, palpitations Respiratory: Denies SOB, wheezing MSK: Denies erythema/edema to joints GI: Denies nausea, vomiting, diarrhea Neuro: COMPLAINS syncope Psych: Denies anxiety & Depression Physical Exam: General: NAD HEENT: moist mucous membranes CV: No murmurs, RRR Respiratory: CTA-bilaterally no wheezes MSK: No joint tenderness, moves all four extremities GI: Soft non tender, non distended Neuro: No focal deficits Psych: A&O x4 - Plan Date/Time: 01/21/18 1427 I, Chacho Darnell, have evaluated this patient and agree with findings/plan as outlined by event marketing intern resident. Pertinent changes/additions are listed here. 1. Acute blood loss anemia - Likely secondary to abnormal uterine bleeding - transfuse 2u pRBC - Iron studies pending - trend CBC 2. Abnormal uterine bleeding - Recommend outpatient PHYSICAL THERAPY RESIDENT follow up - Daily oral supplementation 3 Syncope - Likely secondary to above - Fall precautions 4. Bipolar Disorder - Continue home medications 5. CINDY - Approximately double her baseline - IVF - trend BMP 6. HTN - PRN BP control - Review vital signs CODE STATUS: FULL CODE Disposition: Observation. Stable, will transfuse blood and recheck CBC. Attending Addendum - Attending Addendum Date/Time: 01/21/18 8858 I personally evaluated the patient and discussed the management with Dr. Polo. I agree with the History, Examination, Assessment and Plan documented above with any addition or exceptions noted below. The patient presents with syncopal episode. She states she has had at least 3 episodes of syncope or pre-syncope over the past week. She has been feeling more tired and confused as well. The patient was found to be anemic. She notes very heavy periods where she passes clots. Will transfuse 2 units prbc. Will then start iv fluids for mild cindy. Trend hemoglobin. She will likely need to f/u with funeral location manager to discuss options for the bleeding.
[2018-01-21] MEDS ORDERED: diphenhydrAMINE 50 MG CAP PO PRN (15:20)
[2018-01-21] MEDS ORDERED: Ondansetron ODT 4 MG TAB PO PRN (15:20)
[2018-01-21] MEDS ORDERED: Acetaminophen 325 MG TAB PO PRN (15:20)
[2018-01-21 15:40] VITALS: BMI 38.7
[2018-01-21 16:16] LABS: Iron 16 ug/dL (50-170); Iron Binding Capacity, Total 613 mcg/dL (265-497)
[2018-01-21] MEDS ORDERED: clonazePAM 1 MG TAB PO SCH (16:30)
[2018-01-21] MEDS: clonazePAM 1 MG TAB PO SCH (20:22)
[2018-01-21] MEDS ORDERED: Doxepin HCl 25 MG CAP PO SCH (21:00)
[2018-01-21] MEDS ORDERED: Zolpidem Tartrate 5 MG TAB PO SCH (21:00)
[2018-01-22] MEDS: Sodium Chloride 0.9% 1,000 ML IV SCH ×2 (01:01→04:15)
[2018-01-22 04:55] LABS: ALT (SGPT) 15 U/L (8-55); AST (SGOT) 21 U/L (5-34); Albumin 3.9 g/dL (3.5-5.0); Alkaline Phosphatase 82 U/L (40-150); Anion Gap 13 mmol/L (10-20); BUN (Urea Nitrogen) 15 mg/dL (7.0-18.7); Bilirubin, Total 0.6 mg/dL (0.2-1.2); Calc. Creatinine Clearance 116 mL/min (70-130); Calcium 8.7 mg/dL (7.8-10.44); Carbon Dioxide 22 mmol/L (22-29); Chloride 107 mmol/L (98-107); Estimated GFR-MDRD 57; Globulin 2.6 g/dL (2.4-3.5); Glucose 89 mg/dL (70-105); Potassium 3.9 mmol/L (3.5-5.1); Protein, Total 6.5 g/dL (6.0-8.3); Sodium 138 mmol/L (136-145)
--- NOTE | 2018-01-22 05:55 | PDOC.FM ---
- Subjective Subjective: Patient says she is feeling better. Needs some more rest as she has not slept well over the past week. Denies lightheadedness - Objective Vital Signs & Weight: Vital Signs (12 hours) Temp Pulse Resp BP BP Pulse Ox 01/22/18 04:10 98.4 F 101 H 16 124/65 94 L 01/21/18 22:14 98.1 F 108 H 14 110/66 96 01/21/18 19:36 98.9 F 101 H 20 119/61 96 01/21/18 19:07 99.0 F 112/56 L 95 Weight Weight 106.503 kg Most Recent Monitor Data Heart Rate from ECG 100 Respiration from ECG 16 I&O: 01/20/18 01/21/18 01/22/18 06:59 06:59 06:59 Intake Total 1000 Balance 1000 Result Diagrams: 01/22/18 03:35 01/22/18 03:35 <Jasmin Bhagat - Last Filed: 01/22/18 08:58> - Objective Vital Signs & Weight: Vital Signs (12 hours) Temp Pulse Resp BP Pulse Ox 01/22/18 07:41 98 F 92 20 116/66 96 Weight Weight 106.503 kg Most Recent Monitor Data Heart Rate from ECG 100 Respiration from ECG 16 I&O: 01/21/18 01/22/18 01/23/18 06:59 06:59 06:59 Intake Total 2138 720 Balance 2138 720 Result Diagrams: 01/22/18 03:35 01/22/18 03:35 <Maris Mcdowell - Last Filed: 01/22/18 16:21> Phys Exam - Physical Examination Constitutional: NAD Respiratory: no wheezing, no rales, no rhonchi, clear to auscultation bilateral Cardiovascular: RRR, no significant murmur Gastrointestinal: soft, non-tender, no distention, positive bowel sounds Musculoskeletal: no edema Neurological: non-focal Psychiatric: normal affect <Jasmin Bhagat - Last Filed: 01/22/18 08:58> Dx/Plan (1) Iron deficiency anemia due to chronic blood loss Code(s): D50.0 - IRON DEFICIENCY ANEMIA SECONDARY TO BLOOD LOSS (CHRONIC) Status: Chronic (2) Dysfunctional uterine bleeding Code(s): N93.8 - OTHER SPECIFIED ABNORMAL UTERINE AND VAGINAL BLEEDING Status : Acute (3) Generalized anxiety disorder Code(s): F41.1 - GENERALIZED ANXIETY DISORDER Status: Acute (4) Insomnia Code(s): G47.00 - INSOMNIA, UNSPECIFIED Status: Acute (5) Bipolar disorder Code(s): F31.9 - BIPOLAR DISORDER, UNSPECIFIED Status: Chronic Qualifiers: Active/Remission status: in remission of unspecified degree Qualified Code( s): F31.70 - Bipolar disorder, currently in remission, most recent episode unspecified (6) CINDY (acute kidney injury) Code(s): N17.9 - ACUTE KIDNEY FAILURE, UNSPECIFIED Status: Resolved - Plan Plan: 42 yo F presents with syncope with hx of vaginal bleeding and acute anemia. Acute blood loss anemia, microcytic - Likely secondary to abnormal uterine bleeding - transfuse 2u pRBC - Hgb 6.8->8.4 s/p 2units - iron supplementation - denies current vaginal bleeding - needs STEREOTYPER HELPER consult for outpatient workup. has history of fibroid, menometrorrhagia. Syncope - Likely secondary to above - Fall precautions Bipolar Disorder - Continue home medications CINDY, resolved - Approximately double her baseline - IVF, will d/c HTN, resolved - PRN BP control - BP 113/57 this am CODE STATUS: FULL CODE Disposition: Hgb improved, d/c home today <Jasmin Bhagat - Last Filed: 01/22/18 08:58> (1) Syncope Code(s): R55 - SYNCOPE AND COLLAPSE Status: Acute Qualifiers: Syncope type: unspecified Qualified Code(s): R55 - Syncope and collapse (2) Dysfunctional uterine bleeding Code(s): N93.8 - OTHER SPECIFIED ABNORMAL UTERINE AND VAGINAL BLEEDING Status : Acute (3) Generalized anxiety disorder Code(s): F41.1 - GENERALIZED ANXIETY DISORDER Status: Acute (4) Insomnia Code(s): G47.00 - INSOMNIA, UNSPECIFIED Status: Acute (5) Bipolar disorder Code(s): F31.9 - BIPOLAR DISORDER, UNSPECIFIED Status: Chronic Qualifiers: Active/Remission status: in remission of unspecified degree Qualified Code( s): F31.70 - Bipolar disorder, currently in remission, most recent episode unspecified (6) Iron deficiency anemia due to chronic blood loss Code(s): D50.0 - IRON DEFICIENCY ANEMIA SECONDARY TO BLOOD LOSS (CHRONIC) Status: Chronic <Maris Mcdowell - Last Filed: 01/22/18 16:21> Attending Addendum - Attending Addendum Date/Time: 01/22/18 0620 I personally evaluated the patient and discussed the management with Dr. Bhagat. I agree with the History, Examination, Assessment and Plan documented above with any addition or exceptions noted below. Hb improved after transfusion. Pt is feeling much better and states she can think clearly now. Starting iron supplementation. Pt will be discharged and will need outpt synthetic department supervisor referral. <Maris Mcdowell - Last Filed: 01/22/18 16:21>
[2018-01-22 06:40] LABS: #Basophils 0.1 thou/uL (0.0-0.2); #Eosinphils 0.2 thou/uL (0.0-0.7); #Lymphocytes 3.6 thou/uL (1.20-3.40); #Monocytes 0.7 thou/uL (0.11-0.59); #Neutrophils 3.7 thou/uL (1.40-6.50); %Basophils 1.4 % (0.0-1.0); %Eosinophils 1.9 % (0.0-10.0); %Lymphocytes 42.8 % (21.0-51.0); %Monocytes 8.9 % (0.0-10.0); Anisocytosis MODERATE=16-30 cells (100X) (0-5/hpf); Hemoglobin 8.5 g/dL (12.0-16.0); Hypochromia MODERATE=16-30 cells (100X) (0-5/hpf); MDiff Complete? YES; Mean Corpuscular HGB CONC 28.9 g/dL (32.0-36.0); Mean Corpuscular Hemoglobin 19.4 pg (27.0-31.0); Mean Corpuscular Volume 66.9 fL (78.0-98.0); Mean Platelet Volume 10.6 fL (7.4-10.4); Microcytosis MODERATE=15-30 cells (100X) (0-5/hpf); PLT Morphology Comment Appears Increased; Platelet Count 579 thou/uL (130-400); RBC Distribution Width 25.6 % (11.5-14.5); Red Blood Cell (RBC) Count 4.36 mill/uL (4.20-5.40); White Blood Cell (WBC) Count 8.3 thou/uL (4.8-10.8)
[2018-01-22 07:55] VITALS: BP 116/66; TEMP 98
[2018-01-22] MEDS ORDERED: Ferrous Sulfate 325 MG TAB PO SCH (08:00)
[2018-01-22] MEDS ORDERED: FLUoxetine HCl 20 MG CAP PO SCH (09:00)
[2018-01-22] MEDS ORDERED: Lurasidone Hcl [Latuda] 80 MG PO SCH (09:00)
[2018-01-22] MEDS: clonazePAM 1 MG TAB PO SCH (09:44)
--- NOTE | 2018-01-22 13:14 | DIS-2 ---
DATE OF ADMISSION: 01/21/2018 DATE OF DISCHARGE: 01/22/2018 RESIDENT: Jasmin Bhagat D.O. ADMITTING ATTENDING: Maris Mcdowell M.D. DISCHARGE ATTENDING: Maris Mcdowell M.D. CONSULTS: None. PROCEDURES: None. PRIMARY DIAGNOSES: 1. Acute blood loss anemia. 2. Syncope. 3. Acute kidney injury. 4. Hypertension. SECONDARY DIAGNOSIS: Bipolar disorder. DISCHARGE MEDICATIONS: 1. Fluoxetine 80 mg p.o. daily. 2. Clonazepam 1 mg p.o. t.i.d. 3. Doxepin 150 mg p.o. at bedtime. 4. Seroquel 200 mg p.o. at bedtime. 5. Latuda 80 mg p.o. daily. 6. Ambien 10 mg p.o. at bedtime. 7. Tylenol 650 mg p.o. q.4 hours p.r.n. 8. Ferrous sulfate 325 mg p.o. b.i.d. with meals. DISCONTINUED MEDICATIONS: None. HISTORY OF PRESENT ILLNESS: The patient presented to the ED with history of syncope as well as a his tory of heavy menstrual bleeding. On admission, the patient's hemoglobin was 6.8. Received 2 units PRBC and was then started on IV fluids. The patient's home medications were continued. The followin g day, hemoglobin improved to 8.5. The patient additionally had an acute kidney injury, which resolv ed with discharge creatinine of 1.05. The patient's symptoms resolved. She was started on iron supp lementation for her microcytic anemia. The patient will need a Gynecology referral outpatient consid ering her heavy menstrual bleeding and previous history of fibroids. DISPOSITION: Stable. DISCHARGE INSTRUCTIONS: 1. Location: Home. 2. Diet: Regular. 3. Activity: As tolerated. 4. Followup: With your PCP within 7 days. Referral to Gynecology recommended in the outpatient set
== END 2018-01-22 11:54 | disposition home or self-care (01) ==
LOC: ERS 11:40 → 2SW 15:08
PROVIDERS: ADMIT Family Medicine; ATTEND Family Medicine
DX: D62 Acute posthemorrhagic anemia (principal); R55 Syncope and collapse; N17.9 Acute kidney failure, unspecified; I10 Essential (primary) hypertension; F31.70 Bipolar disorder, currently in remission, most recent episode unspecified; F41.1 Generalized anxiety disorder; N93.8 Other specified abnormal uterine and vaginal bleeding; G47.00 Insomnia, unspecified; Z79.899 Other long term (current) drug therapy; Z88.2 Allergy status to sulfonamides; Z88.8 Allergy status to other drugs, medicaments and biological substances
CPT/HCPCS: 36430; 71045; 80053 ×2; 82553; 82728; 83540; 83550; 84484; 84703; 85025 ×2; 86850; 86900; 86901; 86920; 93005; 96360; 96361 ×2; 99285; G0378 ×2; P9016; 36415; 85060; A4216

== ENCOUNTER 2018-02-09 10:24 | Emergency (ER) | payer MEDICARE ==
[2018-02-09 10:51] LABS: #Lymphocytes 1.7 thou/uL (1.20-3.40); #Monocytes 0.2 thou/uL (0.11-0.59); #Neutrophils 7.2 thou/uL (1.40-6.50); %Basophils 0.1 % (0.0-1.0); %Eosinophils 0.1 % (0.0-10.0); %Lymphocytes 18.5 % (21.0-51.0); %Monocytes 2.7 % (0.0-10.0); %Neutrophils 78.7 % (42.0-75.0); Hemoglobin 13.3 g/dL (12.0-16.0); Mean Corpuscular HGB CONC 30.8 g/dL (32.0-36.0); Mean Corpuscular Hemoglobin 21.9 pg (27.0-31.0); Mean Corpuscular Volume 71.2 fL (78.0-98.0); Mean Platelet Volume 4.2 fL (7.4-10.4); Platelet Count 456 thou/uL (130-400); RBC Distribution Width 29.9 % (11.5-14.5); Red Blood Cell (RBC) Count 6.05 mill/uL (4.20-5.40); White Blood Cell (WBC) Count 9.1 thou/uL (4.8-10.8)
[2018-02-09 11:15] LABS: ALT (SGPT) 26 U/L (8-55); AST (SGOT) 35 U/L (5-34); Albumin 4.7 g/dL (3.5-5.0); Alkaline Phosphatase 99 U/L (40-150); Anion Gap 18 mmol/L (10-20); BUN (Urea Nitrogen) 9 mg/dL (7.0-18.7); Bilirubin, Total 0.9 mg/dL (0.2-1.2); Calc. Creatinine Clearance 0 mL/min (70-130); Calcium 9.7 mg/dL (7.8-10.44); Carbon Dioxide 17 mmol/L (22-29); Chloride 107 mmol/L (98-107); Estimated GFR-MDRD 66; Globulin 3.5 g/dL (2.4-3.5); Glucose 118 mg/dL (70-105); Potassium 4.5 mmol/L (3.5-5.1); Protein, Total 8.2 g/dL (6.0-8.3); Sodium 137 mmol/L (136-145)
[2018-02-09 11:36] LABS: Hypochromia SLIGHT = 6-15 cells (100X) (0-5/hpf); MDiff Complete? YES; Microcytosis MODERATE=15-30 cells (100X) (0-5/hpf); Polychromasia MODERATE = 3-4 cells (100X) (0-2/hpf)
[2018-02-09 12:24] LABS: CKMB 0.6 ng/mL (0-6.6); Troponin I Less than 0.010 ng/mL (< 0.028)
[2018-02-09 12:37] LABS: BHCG - Serum Negative (NEGATIVE); Pregs Control Background? CLEAR/WHITE (CLR/WHITE); Pregs Control Bar Appear? YES (CONTROL BAR)
[2018-02-09 13:06] LABS: Bilirubin Negative (Negative); Blood, Urine Large (Negative); Clarity CLOUDY (Clear); Glucose, Urine (Dipstick) Negative (Negative); Leukocyte Negative (Negative); Nitrite Negative (Negative); Protein, Urine (Dipstick) Negative (Neg-Trace); Specific Gravity, Urine 1.007 (1.002-1.036); Urobilinogen 0.2 mg/dL (0.2-1.0)
[2018-02-09 13:08] LABS: Bacteria/HPF None Seen HPF (None Seen); Hyaline Casts/LPF 0-3 HYALINE CAST LPF (0-3 Hyaline); Pathc Cast-AUWi Flag 0.58 (0-2.49); WBC/HPF 0-3 HPF (0-3)
[2018-02-09 13:13] LABS: Yeast-AUWi Flag 42.8 (0-25.0)
[2018-02-09] MEDS ORDERED: Lorazepam 2 MG/ML VIAL ONE (13:14)
[2018-02-09 13:25] LABS: Yeast-All Forms None Seen HPF (None Seen)
--- NOTE | 2018-02-09 13:47 | CT ---
CT ANGIOGRAM THORAX WITH IV CONTRAST AND 3D RECONSTRUCTIONS: 02/09/2018 HISTORY: Shortness of breath and weakness with lethargy. COMPARISON: None available. FINDINGS: No filling defects are seen in the pulmonary arteries to suggest a pulmonary embolus. The thoracic a erin is normal in caliber without evidence of an aortic dissection. The mediastinal structures have a normal appearance. There is no evidence of lymphadenopathy. The lungs are clear. The visualized upper abdomen has a normal CT appearance. Post cholecystectomy changes are noted. IMPRESSION: No CT evidence of a pulmonary embolus. POS: [facility]
[2018-02-09] MEDS ORDERED: Ondansetron HCl/PF 4 MG/2 ML Vial ONE (14:47)
== END 2018-02-09 14:56 | disposition home or self-care (01) ==
LOC: ERS 10:24
DX: B34.9 Viral infection, unspecified (principal); F41.9 Anxiety disorder, unspecified; K21.9 Gastro-esophageal reflux disease without esophagitis; G47.00 Insomnia, unspecified; F43.10 Post-traumatic stress disorder, unspecified; F31.9 Bipolar disorder, unspecified; Z79.899 Other long term (current) drug therapy
CPT/HCPCS: 36415; 71275; 80053; 81003; 81015; 82553; 84484; 84703; 85025; 85379; 93005; 96361; 96374; 96375; J2060; J2405

== ENCOUNTER 2018-04-23 09:20 | Emergency (ER) | payer MEDICARE ==
[2018-04-23 10:06] LABS: #Lymphocytes 1.6 thou/uL (1.20-3.40); #Monocytes 0.2 thou/uL (0.11-0.59); %Basophils 0.2 % (0.0-1.0); %Eosinophils 0.3 % (0.0-10.0); %Lymphocytes 23.4 % (21.0-51.0); %Monocytes 2.9 % (0.0-10.0); %Neutrophils 73.2 % (42.0-75.0); Hemoglobin 12.9 g/dL (12.0-16.0); Mean Corpuscular HGB CONC 33.4 g/dL (32.0-36.0); Mean Corpuscular Volume 86.8 fL (78.0-98.0); Platelet Count 329 thou/uL (130-400); RBC Distribution Width 16.8 % (11.5-14.5); Red Blood Cell (RBC) Count 4.43 mill/uL (4.20-5.40); White Blood Cell (WBC) Count 6.8 thou/uL (4.8-10.8)
[2018-04-23 10:18] LABS: INR-International Normal Ratio 0.9; PTT 27.7 SEC (22.9-36.1); Prothrombin Time 12.4 SEC (12.0-14.7)
[2018-04-23 10:29] LABS: ALT (SGPT) 13 U/L (8-55); AST (SGOT) 14 U/L (5-34); Albumin 4.2 g/dL (3.5-5.0); Alkaline Phosphatase 79 U/L (40-150); Anion Gap 17 mmol/L (10-20); BUN (Urea Nitrogen) 8 mg/dL (7.0-18.7); Bilirubin, Total 0.2 mg/dL (0.2-1.2); Calc. Creatinine Clearance 0 mL/min (70-130); Calcium 9.4 mg/dL (7.8-10.44); Carbon Dioxide 17 mmol/L (22-29); Chloride 107 mmol/L (98-107); Estimated GFR-MDRD 75; Globulin 2.8 g/dL (2.4-3.5); Glucose 133 mg/dL (70-105); Potassium 3.7 mmol/L (3.5-5.1); Sodium 137 mmol/L (136-145)
== END 2018-04-23 11:28 | disposition home or self-care (01) ==
LOC: ERS 09:20
DX: N93.9 Abnormal uterine and vaginal bleeding, unspecified (principal); K21.9 Gastro-esophageal reflux disease without esophagitis; G47.00 Insomnia, unspecified; F41.9 Anxiety disorder, unspecified; F31.9 Bipolar disorder, unspecified; Z79.899 Other long term (current) drug therapy
CPT/HCPCS: 36415; 80053; 85025; 85610; 85730; 96360; 96361

== ENCOUNTER 2018-05-22 18:35 | Emergency (ER) | payer MEDICARE ==
[2018-05-22 19:30] LABS: #Eosinphils 0.2 thou/uL (0.0-0.7); #Monocytes 0.3 thou/uL (0.11-0.59); #Neutrophils 4.9 thou/uL (1.40-6.50); %Basophils 0.4 % (0.0-1.0); %Eosinophils 2.2 % (0.0-10.0); %Lymphocytes 27.4 % (21.0-51.0); %Monocytes 4.6 % (0.0-10.0); %Neutrophils 65.4 % (42.0-75.0); Hemoglobin 10.2 g/dL (12.0-16.0); Mean Corpuscular HGB CONC 32.4 g/dL (32.0-36.0); Mean Corpuscular Hemoglobin 28.1 pg (27.0-31.0); Mean Corpuscular Volume 86.6 fL (78.0-98.0); Mean Platelet Volume 6.7 fL (7.4-10.4); Platelet Count 513 thou/uL (130-400); RBC Distribution Width 14.2 % (11.5-14.5); Red Blood Cell (RBC) Count 3.63 mill/uL (4.20-5.40); White Blood Cell (WBC) Count 7.4 thou/uL (4.8-10.8)
[2018-05-22 19:34] LABS: BHCG - Serum Negative (NEGATIVE); Pregs Control Background? CLEAR/WHITE (CLR/WHITE); Pregs Control Bar Appear? YES (CONTROL BAR)
[2018-05-22 19:53] LABS: Acetaminophen Less than 6.0 mcg/mL (10.0-30.0); Alcohol Less than 10 mg/dL (Less than 10); Salicylate Less than 8.0 mg/dL (15.0-30.0)
[2018-05-22 19:59] LABS: ALT (SGPT) 31 U/L (8-55); AST (SGOT) 37 U/L (5-34); Albumin 4.2 g/dL (3.5-5.0); Alkaline Phosphatase 116 U/L (40-150); Anion Gap 13 mmol/L (10-20); BUN (Urea Nitrogen) 15 mg/dL (7.0-18.7); Bilirubin, Total Less than 0.2 mg/dL (0.2-1.2); Calc. Creatinine Clearance 0 mL/min (70-130); Calcium 9.8 mg/dL (7.8-10.44); Carbon Dioxide 23 mmol/L (22-29); Chloride 113 mmol/L (98-107); Estimated GFR-MDRD 71; Globulin 2.7 g/dL (2.4-3.5); Glucose 156 mg/dL (70-105); Potassium 4.8 mmol/L (3.5-5.1); Protein, Total 6.9 g/dL (6.0-8.3); Sodium 144 mmol/L (136-145)
[2018-05-22 20:09] LABS: Thyroid Stimulating Hormone 0.3581 uIU/mL (0.35-4.94)
[2018-05-22 20:31] LABS: Bilirubin Unable to Interpret (Negative); Blood, Urine Large (Negative); Clarity Opaque (Clear); Glucose, Urine (Dipstick) Unable to Interpret mg/dL (Negative); Leukocyte Unable to Interpret (Negative); Nitrite Unable to Interpret (Negative); Protein, Urine (Dipstick) > or equal to 300 mg/dL (Neg-Trace); Urobilinogen UNABLE TO INTERPRET mg/dL (0.2-1.0)
[2018-05-22 20:34] LABS: Specific Gravity, Urine 1.022 (1.002-1.036)
[2018-05-22 20:37] LABS: Bacteria/HPF None Seen HPF (None Seen); Hyaline Casts/LPF NONE SEEN LPF (0-3 Hyaline); RBC/HPF GREATER THAN 50-TNTC HPF (0-3); Squamous Epithelial 0-3 HPF (0-3)
[2018-05-22 20:39] LABS: Amphetamine Not Detected (NotDetected); Barbiturates Screen Not Detected (NotDetected); Benzodiazepine Screen Detected (NotDetected); Cocaine Metabolite Screen Not Detected (NotDetected); Medtox Control Line Valid? VALID (VALID); Medtox Reader # READER 1; Methadone Not Detected (NotDetected); Methamphetamine Not Detected (NotDetected); Opiate Screen Not Detected (NotDetected); Oxycodone Screen Not Detected (NotDetected); Phencyclidine (PCP) Not Detected (NotDetected); THC/Cannabinoid Screen Detected (NotDetected); Tricyclic Screen Detected (NotDetected)
== END 2018-05-23 00:05 | disposition home or self-care (01) ==
LOC: ERS 18:35
DX: T42.4X1A Poisoning by benzodiazepines, accidental (unintentional), initial encounter (principal); F13.10 Sedative, hypnotic or anxiolytic abuse, uncomplicated; F12.10 Cannabis abuse, uncomplicated; K21.9 Gastro-esophageal reflux disease without esophagitis; F41.9 Anxiety disorder, unspecified; G47.00 Insomnia, unspecified; F31.9 Bipolar disorder, unspecified; Z79.899 Other long term (current) drug therapy
CPT/HCPCS: 36415; 80053; 80306; 80307; 81003; 81015; 84443; 84703; 85025; 93005; 96360; 96361

== ENCOUNTER 2018-09-09 16:51 | Emergency (ER) | payer MEDICARE ==
[~2018-09-09 16:51] MED LIST: ISOVUE-370 76%-LOCM 1 ML ONE
[2018-09-09] MEDS ORDERED: Ketorolac Tromethamine 30 MG/ML VIAL ONE (18:42)
[2018-09-09 18:58] LABS: #Eosinphils 0.1 thou/uL (0.0-0.7); #Lymphocytes 2.7 thou/uL (1.20-3.40); #Monocytes 0.5 thou/uL (0.11-0.59); #Neutrophils 7.5 thou/uL (1.40-6.50); %Basophils 0.4 % (0.0-1.0); %Eosinophils 0.6 % (0.0-10.0); %Lymphocytes 24.7 % (21.0-51.0); %Monocytes 4.3 % (0.0-10.0); Mean Corpuscular HGB CONC 30.9 g/dL (32.0-36.0); Mean Corpuscular Hemoglobin 23.6 pg (27.0-31.0); Mean Corpuscular Volume 76.4 fL (78.0-98.0); Mean Platelet Volume 7.3 fL (7.4-10.4); Platelet Count 512 thou/uL (130-400); RBC Distribution Width 18.3 % (11.5-14.5); Red Blood Cell (RBC) Count 4.67 mill/uL (4.20-5.40); White Blood Cell (WBC) Count 10.8 thou/uL (4.8-10.8)
[2018-09-09 19:22] LABS: ALT (SGPT) 29 U/L (8-55); AST (SGOT) 21 U/L (5-34); Albumin 4.2 g/dL (3.5-5.0); Alkaline Phosphatase 132 U/L (40-150); Anion Gap 15 mmol/L (10-20); BUN (Urea Nitrogen) 15 mg/dL (7.0-18.7); Bilirubin, Total Less than 0.2 mg/dL (0.2-1.2); Calc. Creatinine Clearance 0 mL/min (70-130); Calcium 9.4 mg/dL (7.8-10.44); Carbon Dioxide 21 mmol/L (22-29); Chloride 107 mmol/L (98-107); Estimated GFR-MDRD 61; Globulin 3.2 g/dL (2.4-3.5); Glucose 90 mg/dL (70-105); Lipase 21 U/L (8-78); Potassium 4.4 mmol/L (3.5-5.1); Protein, Total 7.4 g/dL (6.0-8.3); Sodium 139 mmol/L (136-145)
--- NOTE | 2018-09-09 19:38 | CT ---
CT ABDOMEN AND PELVIS WITH IV CONTRAST 09/09/2018 CLINICAL INFORMATION: Abdominal pain post hysterectomy. COMPARISON: 07/16/2017 Technique: Multiple contiguous axial CT images are obtained through the abdomen and pelvis with IV contrast. Cor onal reformatted images are provided. FINDINGS: Lower Chest: within normal limits. Vessels: The abdominal aorta is normal in caliber without evidence of an aortic dissection. Abdomen: Portal vein:Patent Gallbladder: Postcholecystectomy changes are again seen. Liver: within normal limits. Pancreas: There is a low-density focus in the tail the pancreas also seen on the prior exam. This cotto s demonstrate fat density and probably represents fat insinuating within the tail of the pancreas. The pancreas otherwise has a normal CT appearance. Spleen: within normal limits. Adrenals: within normal limits. Kidneys: Stable low-density focus inferior pole right kidney statistically likely representing a cyst . The kidneys otherwise have a normal CT appearance. Bowel: Normal caliber. Appendix: The appendix is visualized and normal in caliber. Peritoneum: No ascites or free air; no fluid collection. Mesentery and Retroperitoneum: No enlarged mesenteric or retroperitoneal lymph nodes. Abdominal Wall: Minimal reticulation of the adipose layer anterior pelvis is present. This may be rel ated to prior postoperative changes. Pelvis: Reproductive Organs: The uterus is no longer visualized compatible with hysterectomy. There is inflam matory stranding seen within the lower pelvis which is likely attributable to recent postsurgical changes. There is no fluid collection seen to suggest an abscess in this region. Pelvis within normal limits. Bladder: There is minimal asymmetric thickening of the left posterior lateral aspect of the midportio n of the urinary bladder. There are adjacent inflammatory changes noted in this region, this could be reactive in origin. Bones: within normal limits. IMPRESSION: 1. Interval postsurgical changes related to hysterectomy compared to the study in 2018. There are manuela ear inflammatory changes seen within the lower pelvis adjacent to the region of the vaginal cuff and adjacent to the rectum, greater in the left aspect of the pelvis. These findings may be related t o recent postoperative changes, but clinical correlation is recommended. There is no fluid collection seen to suggest an abscess, and no free fluid is seen. 2. Mild asymmetric thickening involving the left posterolateral wall of the mid urinary bladder which may be reactive in origin given adjacent inflammatory changes. 3. No CT evidence of appendicitis. 4. Stable subcentimeter hypodense lesion right kidney statistically likely representing a cyst. 5. Postcholecystectomy changes.
[2018-09-09 20:33] LABS: Bilirubin Negative (Negative); Blood, Urine Negative (Negative); Clarity CLEAR (Clear); Glucose, Urine (Dipstick) Negative (Negative); Leukocyte Negative (Negative); Nitrite Negative (Negative); Protein, Urine (Dipstick) Negative (Neg-Trace); Specific Gravity, Urine 1.041 (1.002-1.036); Urobilinogen 0.2 mg/dL (0.2-1.0)
== END 2018-09-09 21:00 | disposition home or self-care (01) ==
LOC: ERS 16:51
DX: T81.89XA Other complications of procedures, not elsewhere classified, initial encounter (principal); D64.9 Anemia, unspecified; M54.5 Low back pain; K21.9 Gastro-esophageal reflux disease without esophagitis; F31.9 Bipolar disorder, unspecified; F41.9 Anxiety disorder, unspecified; G47.00 Insomnia, unspecified; Z79.899 Other long term (current) drug therapy
CPT/HCPCS: 74177; 80053; 81003; 83690; 85025; 96361; 96374; J1885; Q9966

== ENCOUNTER 2019-02-19 10:19 | Observation (INO) | payer MEDICARE, MEDICAID ==
[2019-02-19 12:16] LABS: #Lymphocytes 2.5 thou/uL (1.20-3.40); #Monocytes 0.7 thou/uL (0.11-0.59); #Neutrophils 10.3 thou/uL (1.40-6.50); %Basophils 0.4 % (0.0-1.0); %Eosinophils 0.1 % (0.0-10.0); %Lymphocytes 18.1 % (21.0-51.0); %Monocytes 5.4 % (0.0-10.0); %Neutrophils 75.9 % (42.0-75.0); Hemoglobin 14.9 g/dL (12.0-16.0); Mean Corpuscular HGB CONC 32.5 g/dL (32.0-36.0); Mean Corpuscular Hemoglobin 29.4 pg (27.0-31.0); Mean Corpuscular Volume 90.4 fL (78.0-98.0); Mean Platelet Volume 6.7 fL (7.4-10.4); Platelet Count 415 thou/uL (130-400); RBC Distribution Width 13.8 % (11.5-14.5); Red Blood Cell (RBC) Count 5.07 mill/uL (4.20-5.40); White Blood Cell (WBC) Count 13.6 thou/uL (4.8-10.8)
[2019-02-19] MEDS ORDERED: ISOVUE-370 76%-LOCM 1 ML ONE (12:23)
[2019-02-19] MEDS ORDERED: Famotidine/PF 20 mg/2ml Vial ONE (12:23)
[2019-02-19] MEDS ORDERED: hydrOXYzine Pamoate 25 mg Capsule ONE (12:23)
[2019-02-19] MEDS ORDERED: Ondansetron PF 4 MG/2 ML Vial ONE (12:23)
[2019-02-19 12:36] LABS: BHCG - Serum Negative (NEGATIVE); Pregs Control Background? CLEAR/WHITE (CLR/WHITE); Pregs Control Bar Appear? YES (CONTROL BAR)
[2019-02-19 12:39] LABS: ALT (SGPT) 28 U/L (8-55); AST (SGOT) 15 U/L (5-34); Albumin 4.8 g/dL (3.5-5.0); Alkaline Phosphatase 81 U/L (40-110); Anion Gap 16 mmol/L (10-20); BUN (Urea Nitrogen) 29 mg/dL (7.0-18.7); Bilirubin, Total 0.6 mg/dL (0.2-1.2); Calc. Creatinine Clearance 0 mL/min (70-130); Calcium 9.9 mg/dL (7.8-10.44); Carbon Dioxide 20 mmol/L (22-29); Chloride 104 mmol/L (98-107); Estimated GFR-MDRD 42; Globulin 2.8 g/dL (2.4-3.5); Glucose 87 mg/dL (70-105); Lipase 15 U/L (8-78); Potassium 4.9 mmol/L (3.5-5.1); Protein, Total 7.6 g/dL (6.0-8.3); Sodium 135 mmol/L (136-145)
[2019-02-19 13:19] LABS: Bacteria/HPF 4+ HPF (None Seen); Bilirubin Negative (Negative); Blood, Urine Negative (Negative); Clarity Turbid (Clear); Glucose, Urine (Dipstick) Normal (Negative); Leukocyte 250 Leu/uL (Negative); Nitrite Negative (Negative); Protein, Urine (Dipstick) 20 mg/dL (Neg-Trace); RBC/HPF 0-3 HPF (0-3); Urobilinogen Normal mg/dL (Less than 2); WBC/HPF 21-50 HPF (0-3)
--- NOTE | 2019-02-19 13:52 | CT ---
CT of abdomen and pelvis: 02/11/2019 COMPARISON: 09/09/2018 HISTORY: Nausea, vomiting, and diarrhea TECHNIQUE: Axial CT imaging at 5 mm intervals from the lung bases through the pubic symphysis with IV contrast. Coronal and sagittal reformatted imaging obtained FINDINGS: The imaged lung bases are unremarkable. No free intraperitoneal air or fluid. Cholecystectomy clips are present. The liver, spleen, pancreas, adrenal glands, and kidneys appear unremarkable. No evidence for bowel obstruction. Appendix is normal. There is mild hyperenhancement of the mucosa involving the rectum and sigmoid:. No wall thickening of the colon is seen in the area of mucosal hyperenhancement. The vascular structures of the abdomen/pelvis appear unremarkable. Review of the osseous structures demonstrates no worrisome lytic or blastic bone lesions. IMPRESSION: Mucosal enhancement involving the sigmoid colon and rectum may signify a mild degree of c olitis. No evidence for obstruction, abscess, or free intraperitoneal air.
[2019-02-19] MEDS ORDERED: Promethazine HCl 25 MG/ML VIAL ONE (14:23)
--- NOTE | 2019-02-19 15:06 | PDOC.FPRHP ---
- History of Present Illness Chief Complaint: Diarrhea, N/V History of Present Illness: Patient is a 43 yo female with PMHx of GERD, Insomnia, Bipolar I, MDD, VIKTORIYA, and Panic disorder who presents with complaint of diarrhea x 6 days, described as loose watery dark brown to black stools. This has been accompanied by nausea and vomiting. Patient states she has had no PO intake for the past 6 days, she has attempted to drink water and Gatorade but then vomits. She also has some vague generalized abdominal pain, that is somewhat worst in the epigastric region. She has been taking Tums for heartburn symptoms. Denies fever/chills, myalgia, arthralgia, headache, dizziness, vision changes, constipation, bright red blood per rectum. No sick contacts. Did not have a flu vaccine this year. ED Course: Given 2 L bolus NS IVF, Phenergan 12.5 mg, Hydroxyzine 25 mg, Bentyl 20 mg, Zofran 4 mg, Famotidine 20 mg. Labs revealed CINDY with GFR, Cr, BUN about double in value compared to November 2018. CT abdomen showed mild colitis of rectosigmoid colon. Afebrile. - Allergies/Adverse Reactions Allergies Allergy/AdvReac Type Severity Reaction Status Date / Time sulfamethoxazole Allergy Intermediate Hives Verified 02/19/19 16:44 [From Bactrim] trimethoprim [From Bactrim] Allergy Intermediate Hives Verified 02/19/19 16:44 - Home Medications Medication Instructions Recorded Confirmed Type FLUoxetine HCl [Prozac] 40 mg PO DAILY 03/28/15 02/19/19 History clonazePAM [Klonopin] 1 mg PO BID 03/10/17 02/19/19 History Lurasidone HCl [Latuda] 80 mg PO HS 01/21/18 02/19/19 History Zolpidem Tartrate [Ambien] 10 mg PO HS 01/21/18 02/19/19 History traZODone HCl [Trazodone HCl] 200 mg PO HS 11/26/18 02/19/19 History Comments: home meds include: Prozac, Latuda, Ambien, Klonopin, Trazodone, Tums Await formal med rec for dosing. - History PMHx: GERD, Anxiety, Depression, Panic disorder, Insomnia PSHx: Cholecystectomy, Total hysterectomy with bilateral oophorectomy, right ankle repair FHx: Mother age 53 from [place] (had 1st [place] at age 31), Grandmother with lung cancer Social: Denies tobacco use. - Review of Systems General: reports: weight/appetite/sleep changes, fatigue. denies: fever/chills Eyes: denies: vision changes ENT: denies: nasal congestion, rhinorrhea Respiratory: denies: cough, congestion, shortness of breath Cardiovascular: denies: chest pain, edema Gastrointestinal: reports: nausea, vomiting, diarrhea, abdominal pain. denies: constipation Genitourinary: denies: dysuria Skin: denies: rashes, lesions, jaundice Musculoskeletal: denies: pain, tenderness, arthritis/arthralgias Neurological: denies: numbness, weakness - Vital signs BP: 122/94 HR: 117 RR: 16 Tmax: 98.3F Pox: 97% on RA Wt: 86 kg - Physical Exam Constitutional: NAD, awake, alert and oriented, well developed HEENT: normocephalic and atraumatic, EOMI, conjunctiva clear, grossly normal vision, grossly normal hearing -HEENT: dry mucous membranes Neck: FROM, no JVD Heart: RRR, normal S1/S2, no murmurs/rubs/gallops, pulses present, no edema Lungs: CTAB, no respiratory distress, good air movement, no wheezing Abdomen: soft, bowel sounds present, no masses/distention -Abdomen: TTP across abdomen, no rebound tenderness Musculoskeletal: normal structure, normal tone Neurological: normal sensation Skin: no rash/lesions -Skin: poor skin turgor Psychiatric: normal mood and affect, intact recent and remote memory FMR H&P: Results - Labs Result Diagrams: 02/19/19 12:05 02/19/19 12:05 Lab results: WBC 13.6 thou/uL (4.8-10.8) H 02/19/19 12:05 Hgb 14.9 g/dL (12.0-16.0) 02/19/19 12:05 Hct 45.8 % (36.0-47.0) 02/19/19 12:05 MCV 90.4 fL (78.0-98.0) 02/19/19 12:05 Plt Count 415 thou/uL (130-400) H 02/19/19 12:05 Neutrophils % 75.9 % (42.0-75.0) H 02/19/19 12:05 Sodium 135 mmol/L (136-145) L 02/19/19 12:05 Potassium 4.9 mmol/L (3.5-5.1) 02/19/19 12:05 Chloride 104 mmol/L (98-107) 02/19/19 12:05 Carbon Dioxide 20 mmol/L (22-29) L 02/19/19 12:05 BUN 29 mg/dL (7.0-18.7) H 02/19/19 12:05 Creatinine 1.38 mg/dL (0.6-1.1) H 02/19/19 12:05 Glucose 87 mg/dL (70-105) 02/19/19 12:05 Lactic Acid 1.8 mmol/L (0.5-2.2) 02/19/19 12:05 Calcium 9.9 mg/dL (7.8-10.44) 02/19/19 12:05 Total Bilirubin 0.6 mg/dL (0.2-1.2) 02/19/19 12:05 AST 15 U/L (5-34) 02/19/19 12:05 ALT 28 U/L (8-55) 02/19/19 12:05 Alkaline Phosphatase 81 U/L (40-110) 02/19/19 12:05 Serum Total Protein 7.6 g/dL (6.0-8.3) 02/19/19 12:05 Albumin 4.8 g/dL (3.5-5.0) 02/19/19 12:05 Lipase 15 U/L (8-78) 02/19/19 12:05 Urine Ketones Negative mg/dL (Negative) 02/19/19 12:29 Urine Blood Negative (Negative) 02/19/19 12:29 Urine Nitrite Negative (Negative) 02/19/19 12:29 Ur Leukocyte Esterase 250 Javier/uL (Negative) A 02/19/19 12:29 Urine RBC 0-3 HPF (0-3) 02/19/19 12:29 Urine WBC 21-50 HPF (0-3) A 02/19/19 12:29 Ur Squamous Epith Cells 11-20 HPF (0-3) A 02/19/19 12:29 Urine Bacteria 4+ HPF (None Seen) A 02/19/19 12:29 - Radiology Interpretation CT scan - abdomen Status: report reviewed by me (mucosal edema in sigmoid colon and rectum suggestive of mild colitis) FMR H&P: A/P - Problem List (1) Dehydration Current Visit: Yes Status: Acute Code(s): E86.0 - DEHYDRATION (2) Colitis Current Visit: Yes Status: Acute Code(s): K52.9 - NONINFECTIVE GASTROENTERITIS AND COLITIS, UNSPECIFIED (3) CINDY (acute kidney injury) Current Visit: No Status: Resolved Code(s): N17.9 - ACUTE KIDNEY FAILURE, UNSPECIFIED - Plan Patient is a 43 yo female with complaints of diarrhea, n/v who is admitted for CINDY and Mild colitis: #CINDY -likely 2/2 dehydration -baseline Cr 0.75, BUN 7, GFR 84 in November 2018 -this admission Cr 1.38, BUN 29, GFR 42 -2L NS bolus given in ED -continue maintenance IVF LR @ 125 ml/h -trend AM CMP #Mild Colitis -less likely bacterial in origin given afebrile status, concern for upper GI bleed given hx of dark/black stools -order H. pylori stool antigen -order stool cultures, O&P, fecal lactoferrin -screen FOBT x 3 -Phenergan, Zofran prn for nausea -consider starting PPI Pantoprazole 40 mg IV once H. pylori stool antigen collected -monitor AM CBC -vitals q4 hr #Anxiety, Panic Disorder -continue home meds: Prozac, Klonopin -Hydroxyzine 25 mg prn for anxiety/agitation -followed by [facility] outpatient #Insomnia -continue home meds: Ambien, Trazodone #GERD -continue home meds: Tums -consider starting PPI Pantoprazole once H. pylori stool antigen collected #Bipolar I -continue home meds: Latuda Diet: Regular VTE: SCDs Code: FULL PCP: Sarah Dispo: Stable, admitted to observation on medical unit. Will order stool studies. Continue to rehydrate with IVF and encourage PO intake. Anticipate LOS <48 hours. FMR H&P: Upper Level - Pertinent history 43 yo F here with complaint of 1 week of n/v/d. Denies recent travel or sick contacts. Has had trouble keeping any food or water down. Complains of upper abdominal pain and black stool. Pt is concerned that there is blood in her stool as it looks like when her mother had melena in the past. She denies BRBPR , dizziness, syncope or palpitation. In the ER pt was noted to have an CINDY and was given 1L NS IV, Zofran, bentyl, and Phenergan. CT was c/w colitis. PMHx Anxiety GERD BPD Surgical hx Hysterectomy and oophorectomy Social Hx No etoh, tobacco, drugs - Pertinent findings See staff internist office based only note for full ROS, PE, vitals, and labs ROS General Denies fever and chills CV Denies CP, palpitation, or peripheral edema Resp Denies SOB or cough GI Complains of n/v, black diarrhea, and epigastric pain denies increased frequency or dysuria Neuro Denies weakness, numbness, or changes in vision PE General A&O x4, NAD HEENT NCAT CV RRR, no murmur Resp CTA, no respiratory distress Abd Diffuse mild TTP. No guarding or distension. Soft. Tenderness is worst at epigastrum Extremities no edema, equal pedal pulses Neuro No focal deficits - Plan Date/Time: 02/19/19 [id number] I, Pedro Rosales, , have evaluated this patient and agree with findings/plan as outlined by staff internist office based only resident. Pertinent changes/additions are listed here. 1.CINDY -Secondary to gastroenteritis/colitis. Possible H pylori infection given epigastric symptoms. At this point will hold off on abx due to possible blood in stool and epigastric pain rather than lower quadrant. If there is no improvement with IVF will consider starting abx -Repeat labs in am -O&P, Cultures, lactoferrin, H pylori 2.Pyuria -Patient is complaining of no urinary symptoms and sample was contaminated. Culture pending, will treat if indicated. 3.Anxiety -Continue home meds 4.BPD -Home meds PPx SCD Diet Regular, advance as tolerated Code Full Addendum - Attending - Attending Attestation Date/Time: 02/19/19 1992 I personally evaluated the patient and discussed the management with Dr. Rosales and Keith. I agree with the History, Examination, Assessment and Plan documented above with any addition or exceptions noted below.
[2019-02-19] MEDS ORDERED: Ondansetron PF 4 MG/2 ML Vial IVP PRN (15:14)
[2019-02-19] MEDS ORDERED: Calcium Carbonate 500 MG ChewTAB PO PRN (15:14)
[2019-02-19] MEDS ORDERED: Ondansetron ODT 4 MG TAB PO PRN (15:14)
[2019-02-19] MEDS ORDERED: Senokot S 8.6-50 MG TAB PO PRN (15:14)
[2019-02-19] MEDS ORDERED: Acetaminophen 325 MG TAB PO PRN (15:14)
[2019-02-19 16:22] VITALS: BMI 32.8
[2019-02-19] MEDS ORDERED: Promethazine HCl 12.5 MG in Sodium Chloride 0.9% 50 ML IVPB PRN (16:22)
[2019-02-19] MEDS ORDERED: hydrOXYzine 25 MG TAB PO PRN (16:22)
[2019-02-19] MEDS: Lactated Ringer's 1,000 ML IV SCH (18:32)
[2019-02-19 18:57] LABS: Anion Gap 13 mmol/L (10-20); BUN (Urea Nitrogen) 16 mg/dL (7.0-18.7); Calc. Creatinine Clearance 123 mL/min (70-130); Calcium 8.8 mg/dL (7.8-10.44); Carbon Dioxide 16 mmol/L (22-29); Chloride 109 mmol/L (98-107); Estimated GFR-MDRD 76; Glucose 75 mg/dL (70-105); Potassium 4.4 mmol/L (3.5-5.1); Sodium 134 mmol/L (136-145)
[2019-02-19] MEDS ORDERED: Zolpidem Tartrate 5 MG TAB PO SCH (22:15)
[2019-02-19] MEDS ORDERED: traZODone HCl 150 MG TAB PO SCH (22:15)
[2019-02-19] MEDS ORDERED: clonazePAM 0.5 MG TAB PO SCH (22:15)
[2019-02-20] MEDS: Lactated Ringer's 1,000 ML IV SCH ×2 (02:36→07:58)
[2019-02-20 05:14] LABS: ALT (SGPT) 17 U/L (8-55); AST (SGOT) 10 U/L (5-34); Albumin 3.5 g/dL (3.5-5.0); Alkaline Phosphatase 54 U/L (40-110); Anion Gap 8 mmol/L (10-20); BUN (Urea Nitrogen) 16 mg/dL (7.0-18.7); Bilirubin, Total 0.4 mg/dL (0.2-1.2); Calc. Creatinine Clearance 128 mL/min (70-130); Calcium 8.4 mg/dL (7.8-10.44); Carbon Dioxide 24 mmol/L (22-29); Chloride 111 mmol/L (98-107); Estimated GFR-MDRD 79; Globulin 1.8 g/dL (2.4-3.5); Glucose 84 mg/dL (70-105); Potassium 3.9 mmol/L (3.5-5.1); Protein, Total 5.3 g/dL (6.0-8.3); Sodium 139 mmol/L (136-145)
--- NOTE | 2019-02-20 05:52 | PDOC.FM ---
- Subjective Subjective: Patient says she slept well overnight. Was able to eat pot roast and mashed potatoes for dinner last night. No episodes of vomiting or diarrhea. - Objective MAR Reviewed: Yes Vital Signs & Weight: Vital Signs (12 hours) Temp Pulse Resp BP BP Pulse Ox 02/20/19 02:36 76 18 118/64 96 02/19/19 19:10 98.8 F 87 16 129/81 98 Weight Weight 89.312 kg I&O: 02/18/19 02/19/19 02/20/19 06:59 06:59 06:59 Intake Total 1000 Output Total 0 Balance 1000 Result Diagrams: 02/20/19 06:15 02/20/19 04:09 Phys Exam - Physical Examination Constitutional: NAD HEENT: moist MMs, sclera anicteric Neck: no JVD, supple, full ROM Respiratory: no wheezing, no rales, no rhonchi, clear to auscultation bilateral Cardiovascular: RRR, no significant murmur Gastrointestinal: soft, non-tender, no distention, positive bowel sounds Musculoskeletal: no edema, pulses present Neurological: normal sensation, moves all 4 limbs Psychiatric: normal affect, A&O x 3 Skin: no rash, normal turgor Dx/Plan (1) Dehydration Code(s): E86.0 - DEHYDRATION Status: Acute (2) Colitis Code(s): K52.9 - NONINFECTIVE GASTROENTERITIS AND COLITIS, UNSPECIFIED Status : Acute (3) CINDY (acute kidney injury) Code(s): N17.9 - ACUTE KIDNEY FAILURE, UNSPECIFIED Status: Resolved - Plan Plan: Patient is a 43 yo female with complaints of diarrhea, n/v who is admitted for CINDY and Mild colitis: #CINDY -likely 2/2 dehydration -baseline Cr 0.75, BUN 7, GFR 84 in November 2018 -this admission Cr 1.38, BUN 29, GFR 42 (02/19) --> Cr 0.79, BUN 17, GFR 79 () -2L NS bolus given in ED -continue maintenance IVF LR @ 125 ml/h -trend AM CMP #Mild Colitis -less likely bacterial in origin given afebrile status, concern for upper GI bleed given hx of dark/black stools but FOBT neg, likely viral gastroenteritis -order H. pylori stool antigen -order stool cultures, O&P, fecal lactoferrin -screen FOBT x 3 all negative -Phenergan, Zofran prn for nausea -will start PPI Pantoprazole 40 mg IV this AM (02/20) -monitor AM CBC--showed drop in Hgb from 14.9 to 11.3, appears 2/2 hemodilution from IVF given throughout stay, if persistent can work up anemia as outpatient -vitals q4 hr #Pyuria -UA collected was dirty with 11-20 squamous epithelial cells, patient currently asymptomatic in regards to sx -Urine culture sent -will hold off on ABx at this time and await cultures #Anxiety, Panic Disorder -continue home meds: Prozac, Klonopin -Hydroxyzine 25 mg prn for anxiety/agitation -followed by [facility] outpatient #Insomnia -continue home meds: Ambien, Trazodone #GERD -continue home meds: Tums -will start PPI Pantoprazole this AM #Bipolar I -continue home meds: Latuda Diet: Regular VTE: SCDs Code: FULL PCP: Sarah Dispo: Stable, admitted to observation on medical unit. Will await stool studies. Continue to rehydrate with IVF and encourage PO intake. Anticipate LOS <48 hours.
[2019-02-20 06:28] LABS: #Eosinphils 0.1 thou/uL (0.0-0.7); #Lymphocytes 3.3 thou/uL (1.20-3.40); #Monocytes 0.4 thou/uL (0.11-0.59); #Neutrophils 2.8 thou/uL (1.40-6.50); %Basophils 0.7 % (0.0-1.0); %Eosinophils 2.2 % (0.0-10.0); %Lymphocytes 49.3 % (21.0-51.0); %Neutrophils 41.9 % (42.0-75.0); Hemoglobin 11.3 g/dL (12.0-16.0); Mean Corpuscular HGB CONC 33.1 g/dL (32.0-36.0); Mean Corpuscular Hemoglobin 30.9 pg (27.0-31.0); Mean Corpuscular Volume 93.2 fL (78.0-98.0); Mean Platelet Volume 7.3 fL (7.4-10.4); Platelet Count 255 thou/uL (130-400); RBC Distribution Width 13.9 % (11.5-14.5); Red Blood Cell (RBC) Count 3.65 mill/uL (4.20-5.40); White Blood Cell (WBC) Count 6.7 thou/uL (4.8-10.8)
[2019-02-20 08:32] VITALS: BP 112/59; TEMP 97.7
[2019-02-20] MEDS ORDERED: Pantoprazole 40 MG VIAL IVP SCH (09:00)
[2019-02-20] MEDS ORDERED: FLUoxetine HCl 20 MG CAP PO SCH (09:00)
[2019-02-20] MEDS ORDERED: clonazePAM 0.5 MG TAB PO SCH (09:00)
[2019-02-20] MEDS ORDERED: FLU VACC QS2019-20(6MOS UP)/PF 60 MCG/0.5 ML SYRINGE IM ONE (09:00)
--- NOTE | 2019-02-20 10:26 | PRG ---
DATE OF SERVICE: 02/20/2019 Ms. Rosas is a pleasant 43-year-old lady, who was admitted with diarrhea. Her studies for enteric pathogens, Lactoferrin, and stool occult blood are all negative. Her diarrhea has already greatly resolved. She is instructed in a potato pasta diet and will be discharged this afternoon. Job ID: [id number]
[2019-02-20] MEDS ORDERED: Zolpidem Tartrate 5 MG TAB PO SCH (21:00)
[2019-02-20] MEDS ORDERED: traZODone HCl 150 MG TAB PO SCH (21:00)
[2019-02-20] MEDS ORDERED: LURASIDONE HCL 80 MG PO SCH (21:00)
--- NOTE | 2019-02-21 05:26 | DIS ---
DATE OF ADMISSION: 02/19/2019 DATE OF DISCHARGE: 02/20/2019 RESIDENT: Ernestina Parker DO. ADMITTING ATTENDING: Mo Phillips MD. DISCHARGE ATTENDING: Kaleb Santos MD. CONSULTS: None. PROCEDURES: Abdomen and pelvis CT on February 19, 2019, mild colitis of rectosigmoid colon. PRIMARY DIAGNOSIS: Acute kidney injury. SECONDARY DIAGNOSES: 1. Mild colitis. 2. Dehydration. 3. Anxiety, panic disorder. 4. Insomnia. 5. Gastroesophageal reflux disease. 6. Bipolar I. DISCHARGE MEDICATIONS: 1. Calcium carbonate (Tums) 1000 mg p.o. q.4 hours p.r.n. for upset stomach. 2. Fluoxetine 40 mg p.o. daily. 3. Clonazepam 1 mg p.o. b.i.d. 4. Lurasidone 80 mg p.o. at bedtime. 5. Ambien 10 mg p.o. at bedtime. 6. Trazodone 200 mg p.o. at bedtime. DISCONTINUED MEDICATIONS: 1. Hydroxyzine 25 mg p.o. q.6 hours p.r.n. for anxiety. 2. Lactated Ringer's IV at 125 mL/hour. 3. Promethazine (Phenergan) 12.5 mg IVPB q.6 hours. 4. Ondansetron 4 mg p.o. q.6 hours p.r.n. for nausea. HISTORY OF PRESENT ILLNESS/HOSPITAL COURSE: The patient is a 43-year-old female with past medical history of GERD, who presents with a complaint of diarrhea for 6 days, described as loose, watery, dark brown to black stools. This has been accompanied by nausea and vomiting for the same period. The patient states she has had no p.o. intake for the past 6 days. She has attempted to drink water and Gatorade, but then vomits. She also has some vague generalized abdominal pain that is somewhat worse in the epigastric region. She has been taking Tums for heartburn symptoms. On admission, she denies fever, chills, myalgia, arthralgia, headache , dizziness, vision changes, constipation, bright red blood per rectum. No sick contacts. She did not have a flu vaccine this year. In the emergency department, she was given a 2 L bolus of normal saline, Phenergan 12.5 mg, hydroxyzine 25 mg, Bentyl 20 mg, Zofran 4 mg, famotidine 20 mg. Labs revealed an CINDY with GFR, creatinine, BUN about double in value compared to her baseline and in November 2018. CT of the abdomen showed mild colitis of the rectosigmoid colon. The patient was admitted to observation on the medical unit. Upon arrival to the medical floor, the patient was continued to be hydrated with IV fluids, switched to lactated Ringer's at 125 mL/hour, p.o. intake was greatly encouraged. Stool studies were ordered and collected including O and P, fecal lactoferrin, E. coli 0157 culture, Campylobacter, shiga toxin, H pylori antigen , and fecal occult blood testing x3. All of these studies resulted negative. A urine culture was obtained, which showed no growth at 24 hours. On the morning of February 20, 2019, the patient stated that she had slept well and was able to eat solid foods for dinner the night before. She had no further episodes of vomiting or diarrhea. The patient stated she was feeling better. At this time, the patient was deemed stable back to discharge home with instructions to follow a bland diet over the next few days while she recovered from this suspected gastroenteritis, likely viral. PERTINENT LABORATORY DATA: 1. Baseline values in January 2019: Creatinine 0.75, BUN 7, GFR 84. 2. Admission values: Creatinine 1.38, BUN 29, GFR 42. 3. Values on February 20, 2019: Creatinine 0.79, BUN 17, GFR 79. DISPOSITION: Stable. DISCHARGE INSTRUCTIONS: 1. Location: Home. 2. Diet: Regular, counseled the eat bland foods for next week. 3. Activity: As tolerated. 4. Follow up: With the PCP Dr. Star Smith in 3 to 5 days for hospital followup. Job ID: [id number] MTDD
== END 2019-02-20 11:51 | disposition home or self-care (01) ==
LOC: ERS 10:19 → 2SW 14:31
PROVIDERS: ADMIT Family Medicine; ATTEND Family Medicine
DX: N17.9 Acute kidney failure, unspecified (principal); E86.0 Dehydration; K52.9 Noninfective gastroenteritis and colitis, unspecified; F41.0 Panic disorder [episodic paroxysmal anxiety]; F32.9 Major depressive disorder, single episode, unspecified; K21.9 Gastro-esophageal reflux disease without esophagitis; G47.00 Insomnia, unspecified; Z88.1 Allergy status to other antibiotic agents; Z88.2 Allergy status to sulfonamides; Z79.899 Other long term (current) drug therapy
CPT/HCPCS: 36415; 74177; 80053; 81003; 81015; 82274; 83605; 83630; 83690; 83735; 84703; 85025; 86850; 86900; 86901; 87045; 87046; 87081; 87086; 87328; 87329; 87338; 87427; 87449; 96361; 96365; 96372; 96375; C9113; G0378; J0500; J2405; J2550; Q0177; Q9966; S0028

== ENCOUNTER 2019-03-29 13:55 | Emergency (ER) | payer MEDICARE, MEDICAID ==
[2019-03-29 15:06] LABS: #Basophils 0.1 thou/uL (0.0-0.2); #Lymphocytes 2.5 thou/uL (1.20-3.40); #Monocytes 0.5 thou/uL (0.11-0.59); #Neutrophils 3.4 thou/uL (1.40-6.50); %Basophils 0.8 % (0.0-1.0); %Eosinophils 0.7 % (0.0-10.0); %Lymphocytes 38.9 % (21.0-51.0); %Monocytes 7.4 % (0.0-10.0); %Neutrophils 52.2 % (42.0-75.0); Hemoglobin 13.8 g/dL (12.0-16.0); Mean Corpuscular HGB CONC 33.2 g/dL (32.0-36.0); Mean Corpuscular Hemoglobin 30.1 pg (27.0-31.0); Mean Corpuscular Volume 90.4 fL (78.0-98.0); Mean Platelet Volume 6.4 fL (7.4-10.4); Platelet Count 399 thou/uL (130-400); RBC Distribution Width 13.2 % (11.5-14.5); White Blood Cell (WBC) Count 6.5 thou/uL (4.8-10.8)
[2019-03-29 15:28] LABS: ALT (SGPT) 18 U/L (8-55); AST (SGOT) 17 U/L (5-34); Albumin 4.3 g/dL (3.5-5.0); Alkaline Phosphatase 65 U/L (40-110); Anion Gap 11 mmol/L (10-20); BUN (Urea Nitrogen) 18 mg/dL (7.0-18.7); Bilirubin, Total 0.2 mg/dL (0.2-1.2); Calc. Creatinine Clearance 0 mL/min (70-130); Calcium 9.1 mg/dL (7.8-10.44); Carbon Dioxide 26 mmol/L (22-29); Chloride 106 mmol/L (98-107); Estimated GFR-MDRD 51; Globulin 2.7 g/dL (2.4-3.5); Glucose 103 mg/dL (70-105); Lipase 31 U/L (8-78); Sodium 139 mmol/L (136-145)
--- NOTE | 2019-03-29 17:45 | RAD ---
Exam: Chest one view HISTORY:Chest pain Comparison: 11/25/2018 FINDINGS: Cardiac silhouette: Normal Aorta: Unremarkable Pulmonary vessels: Normal Costophrenic angles: Clear LUNGS: No masses or consolidation. Pneumothorax: None Osseous abnormalities: None IMPRESSION: No acute cardiopulmonary process.
[2019-03-29 17:58] LABS: Bacteria/HPF 4+ HPF (None Seen); Bilirubin Negative (Negative); Blood, Urine Negative (Negative); Clarity Clear (Clear); Glucose, Urine (Dipstick) Normal (Negative); Leukocyte 75 Leu/uL (Negative); Nitrite 2+ (Negative); Pregnancy Test - Urine (BHCG) Negative (Negative); Pregu Control Background? CLEAR/WHITE (CLR/WHITE); Pregu Control Bar Appear? YES (CONTROL BAR); Protein, Urine (Dipstick) 10 mg/dL (Neg-Trace); RBC/HPF 0-3 HPF (0-3); Specific Gravity 1.025 (1.002-1.036); Squamous Epithelial 0-3 HPF (0-3); Urobilinogen Normal mg/dL (Less than 2)
== END 2019-03-29 19:46 | disposition home or self-care (01) ==
LOC: ERS 13:55
DX: N12 Tubulo-interstitial nephritis, not specified as acute or chronic (principal); K21.9 Gastro-esophageal reflux disease without esophagitis; F41.9 Anxiety disorder, unspecified; F31.9 Bipolar disorder, unspecified; G47.00 Insomnia, unspecified; Z79.899 Other long term (current) drug therapy
CPT/HCPCS: 36415; 71045; 80053; 81003; 81015; 81025; 83690; 84484; 85025; 87804; 93005; 96360; 96361

== ENCOUNTER 2019-06-07 13:37 | Emergency (ER) | payer MEDICARE, MEDICAID ==
[2019-06-07 14:17] LABS: #Basophils 0.1 thou/uL (0.0-0.2); #Lymphocytes 2.4 thou/uL (1.20-3.40); #Monocytes 0.6 thou/uL (0.11-0.59); #Neutrophils 4.3 thou/uL (1.40-6.50); %Basophils 0.8 % (0.0-1.0); %Eosinophils 0.5 % (0.0-10.0); %Lymphocytes 32.3 % (21.0-51.0); %Monocytes 7.5 % (0.0-10.0); %Neutrophils 58.9 % (42.0-75.0); Hemoglobin 12.7 g/dL (12.0-16.0); Mean Corpuscular HGB CONC 32.5 g/dL (32.0-36.0); Mean Corpuscular Hemoglobin 28.9 pg (27.0-31.0); Mean Platelet Volume 6.5 fL (7.4-10.4); Platelet Count 322 thou/uL (130-400); RBC Distribution Width 14.3 % (11.5-14.5); Red Blood Cell (RBC) Count 4.38 mill/uL (4.20-5.40); White Blood Cell (WBC) Count 7.3 thou/uL (4.8-10.8)
[2019-06-07 14:36] LABS: ALT (SGPT) 24 U/L (8-55); AST (SGOT) 15 U/L (5-34); Alkaline Phosphatase 98 U/L (40-110); Anion Gap 10 mmol/L (10-20); BUN (Urea Nitrogen) 14 mg/dL (7.0-18.7); Bilirubin, Total 0.4 mg/dL (0.2-1.2); Calc. Creatinine Clearance 0 mL/min (70-130); Calcium 8.5 mg/dL (7.8-10.44); Carbon Dioxide 25 mmol/L (22-29); Chloride 107 mmol/L (98-107); Estimated GFR-MDRD 54; Glucose 120 mg/dL (70-105); Potassium 3.9 mmol/L (3.5-5.1); Sodium 138 mmol/L (136-145)
--- NOTE | 2019-06-07 15:39 | CT ---
CT OF THE ABDOMEN AND PELVIS WITH CONTRAST: 06/07/19 COMPARISON: 02/19/19. HISTORY: Right lower quadrant abdominal pain with low blood pressure and diarrhea. TECHNIQUE: Multiple contiguous axial images were obtained in a CT of the abdomen and pelvis with contrast. Sagit dontrell and coronal reformats were performed. FINDINGS: The patient is status post cholecystectomy. The liver, left kidney, adrenal glands, spleen, and pancr eas are unremarkable. A subcentimeter hypodensity in the right kidney likely represents a small cyst. No free air, free fluid, or stranding changes are seen in the abdomen or pelvis. The patient is statu s post hysterectomy. The large and small bowel are unremarkable. The appendix is normal. No abdominal or pelvic lymphadenopathy are seen. The osseous structures, visualized inferior thorax, and abdominal wall soft tissues are unremarkable. IMPRESSION: No evidence of acute intra-abdominal/pelvic abnormality. POS: [facility]
[2019-06-07] MEDS ORDERED: Iopamidol-370 76% 500 ML 1 ML ONE (16:30)
== END 2019-06-07 16:13 | disposition home or self-care (01) ==
LOC: ERS 13:37
DX: E86.0 Dehydration (principal); R19.7 Diarrhea, unspecified; K21.9 Gastro-esophageal reflux disease without esophagitis; F41.9 Anxiety disorder, unspecified; F31.9 Bipolar disorder, unspecified; G47.00 Insomnia, unspecified
CPT/HCPCS: 36415; 74177; 80053; 83605; 85025; 96360; Q9967

== ENCOUNTER 2020-07-16 08:50 | Emergency (ER) | payer MEDICARE, MEDICAID ==
[2020-07-16 09:28] LABS: #Eosinphils 0.1 thou/uL (0.0-0.7); #Lymphocytes 3.8 thou/uL (1.20-3.40); #Monocytes 0.5 thou/uL (0.11-0.59); #Neutrophils 3.3 thou/uL (1.40-6.50); %Basophils 0.5 % (0.0-1.0); %Eosinophils 1.6 % (0.0-10.0); %Lymphocytes 48.6 % (21.0-51.0); %Monocytes 6.6 % (0.0-10.0); %Neutrophils 42.7 % (42.0-75.0); Hemoglobin 14.5 g/dL (12.0-16.0); Mean Corpuscular HGB CONC 33.6 g/dL (32.0-36.0); Mean Corpuscular Hemoglobin 30.8 pg (27.0-31.0); Mean Corpuscular Volume 91.5 fL (78.0-98.0); Mean Platelet Volume 6.3 fL (7.4-10.4); Platelet Count 453 thou/uL (130-400); RBC Distribution Width 12.8 % (11.5-14.5); Red Blood Cell (RBC) Count 4.73 mill/uL (4.20-5.40); White Blood Cell (WBC) Count 7.8 thou/uL (4.8-10.8)
[2020-07-16 09:46] LABS: ALT (SGPT) 44 U/L (8-55); AST (SGOT) 35 U/L (5-34); Alkaline Phosphatase 117 U/L (40-110); Anion Gap 14 mmol/L (10-20); BUN (Urea Nitrogen) 11 mg/dL (7.0-18.7); Bilirubin, Total 0.3 mg/dL (0.2-1.2); Calc. Creatinine Clearance 0 mL/min (70-130); Calcium 8.9 mg/dL (7.8-10.44); Carbon Dioxide 21 mmol/L (22-29); Chloride 111 mmol/L (98-107); Globulin 2.6 g/dL (2.4-3.5); Glucose 106 mg/dL (70-105); Potassium 4.7 mmol/L (3.5-5.1); Protein, Total 6.6 g/dL (6.0-8.3); Sodium 141 mmol/L (136-145)
== END 2020-07-16 10:55 | disposition home or self-care (01) ==
LOC: ERS 08:50
DX: R07.89 Other chest pain (principal); I10 Essential (primary) hypertension; K21.9 Gastro-esophageal reflux disease without esophagitis
CPT/HCPCS: 36415; 71046; 80053; 84484; 85025; 93005